=== PATIENT | male | born 1950 | race Caucasian/White ===

== ENCOUNTER → 2016-03-15 | Outpatient (CLI) | payer BC ==
--- NOTE | 2016-03-15 12:08 | US ---
EXAMINATION TYPE: US thyroid st tissue head/neck DATE OF EXAM: 03/15/2016 11:07 AM COMPARISON: In pacs CLINICAL HISTORY: Follow up thyroid nodules, history of thyroid bx. GLAND SIZE: Right Lobe: 4.0 x 2.0 x 1.9cm Overall Parenchyma: heterogenous Left Lobe: 5.1 x 2.0 x 1.6cm Overall Parenchyma: heterogeneous Isthmus Thickness: 0.6cm NODULES RIGHT: # of nodules measured on right: 2 1. Stable hyperechoic solid nodule at the mid pole with well-defined margins. This nodule is wider t atkinson tall and shows intranodular vascularity. Prior size: 0.5 x 0.6 x 0.4 cm 2. 1.0 X 0.7 x 0.9 cm hypoechoic solid nodule at the upper pole with well-defined margins. This nodu le is wider than tall and shows no intranodular vascularity. Prior size: 0.9 x 0.7 x 0.9 cm LEFT: # of nodules measured on left: 0 ISTHMUS: # of nodules measured in the isthmus: 1 1. 2.3 X 1.2 x 1.9 cm hypoechoic solid nodule at the mid pole with well-defined margins. This nodul e is wider than tall and shows intranodular vascularity. IMPRESSION: Essentially stable exam SONOGRAPHIC PATTERNS, ESTIMATED MALIGNANCY RISK AND FNA GUIDANCE FOR THYROID NODULES Sonographic Pattern: Benign Ultrasound Features: Purely Cystic Nodules (No Solid Component) Estimated Risk Of Malignancy, %: <1 FNA Size Cutoff (Largest Dimension): No Biopsy Sonographic Pattern: Very Low Suspicion Ultrasound Features: Spongiform Or Partially Cystic Nodules Without Any Of The Sonographic Features Described In Low, Inte rmediate Or High Suspicion Patterns. Estimated Risk Of Malignancy, %: <3 FNA Size Cutoff (Largest Dimension): Recommend FNA At > 2cm Or Observation Without FNA Sonographic Pattern: Low Suspicion Ultrasound Features: Isoechoic Or Hyperechoic Solid Nodule, Or Partially Cystic Nodule With Eccentric Solid Areas, Without Microcalcification, Irregular Margin Or Ete, Or Taller Than Wide Shape. Estimated Risk Of Malignancy, %: 5-10 FNA Size Cutoff (Largest Dimension): Recommend FNA At > 1.5cm Sonographic Pattern: Intermediate Suspicion Ultrasound Features: Hypoechoic Solid Nodule With Smooth Margins Without Microcalcifications, Ete, Or Taller Than Wide Sha pe. Estimated Risk Of Malignancy, %: 10-20 FNA Size Cutoff (Largest Dimension): Recommend FNA At > 1cm Sonographic Pattern: High Suspicion Ultrasound Features: Solid Hypoechoic Nodule Or Solid Hypoechoic Component Of A Partially Cystic Nodule With One Or More O f The Following Features: Irregular Margins (Infiltrative, Microlobulated), Microcalcifications, Tall er Than Wide Shape, Rim Calcifications With Small Extrusive Soft Tissue Component, Evidence Of Ete Estimated Risk Of Malignancy, %: >70-90 FNA Size Cutoff (Largest Dimension): Recommend FNA At > 1cm
== END | disposition home or self-care (01) ==
LOC: RADUSWWP 10:28
PROVIDERS: ATTEND Surgery
DX: E04.2 Nontoxic multinodular goiter (principal)
CPT/HCPCS: 76536

== ENCOUNTER → 2016-09-06 | Outpatient (CLI) | payer BC ==
--- NOTE | 2016-09-07 09:13 | XR ---
EXAMINATION TYPE: XR finger RT DATE OF EXAM: 09/06/2016 COMPARISON: NONE HISTORY: Pain TECHNIQUE: Two views are submitted. FINDINGS: The osseous structures are intact. The joint spaces are preserved and there is no acute fracture or dislocation. Soft tissue laceration and edema noted adjacent to the distal phalanx. Benign-appearing cyst within the middle phalanx second digit. IMPRESSION: 1. No definite acute fracture or dislocation if symptoms persist, follow-up study in 7 to 10 days wo uld be suggested
== END | disposition home or self-care (01) ==
LOC: RADXRYALE 16:43
PROVIDERS: ATTEND Family Medicine
DX: S61.210A Laceration without foreign body of right index finger without damage to nail, initial encounter (principal); W45.8XXA Other foreign body or object entering through skin, initial encounter

== ENCOUNTER 2016-12-16 08:52 | Emergency (ER) | payer BC ==
[2016-12-16 08:58] VITALS: BP 118/67; PULSE 63; RESP 20; TEMP 97.8
--- NOTE | 2016-12-16 09:05 | ED ---
General Adult HPI <Nasim Interiano - Last Filed: 12/16/16 09:21> - General Source: patient, RN notes reviewed Mode of arrival: ambulatory Limitations: no limitations <Julio Callahan - Last Filed: 12/16/16 10:25> - General Chief complaint: Extremity Injury, Upper Stated complaint: LEFT HAND PINKIE FINGER LAC Time Seen by Provider: 12/16/16 08:59 - History of Present Illness Initial comments: Patient 66-year-old male who presents emergency room today with chief complaint of an injury to the left pinky finger that occurred just prior to arrival. 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 He states tetanus is up-to-date. Patient admits to pain locally to the area but denies any other complaints or symptoms. Patient denies any recent fever, chills, shortness of breath, chest pain, back pain, abdominal pain, nausea or vomiting, numbness or tingling, dysuria or hematuria, constipation or diarrhea, headaches or visual changes, or any other complaints. (Julio Callahan) - Related Data Home Medications Medication Instructions Recorded Confirmed Aspirin [Adult Low Dose Aspirin EC] 81 mg PO DAILY 07/30/15 12/16/16 Gabapentin [Neurontin] 300 mg PO BID 07/30/15 12/16/16 Levothyroxine Sodium [Synthroid] 25 mcg PO DAILY 07/30/15 12/16/16 Previous Rx's Medication Instructions Recorded Cephalexin [Keflex] 500 mg PO Q12HR 10 Days 12/16/16 Hydrocodone/Acetaminophen [[place] 1 each PO Q6HR PRN #15 tab 12/16/16 5-325] Allergies Allergy/AdvReac Type Severity Reaction Status Date / Time codeine Allergy Swelling Verified 12/16/16 08:55 Penicillins Allergy Swelling Verified 12/16/16 08:55 Review of Systems ROS Other: All systems not noted in ROS Statement are negative. <Nasim Interiano - Last Filed: 12/16/16 09:21> ROS Other: All systems not noted in ROS Statement are negative. <Julio Callahan - Last Filed: 12/16/16 10:25> ROS Statement: Those systems with pertinent positive or pertinent negative responses have been documented in the HPI. Past Medical History Past Medical History: Thyroid Disorder Additional Past Medical History / Comment(s): thyroid nodule History of Any Multi-Drug Resistant Organisms: None Reported Additional Past Surgical History / Comment(s): carpal tunnel 2015 Past Anesthesia/Blood Transfusion Reactions: No Reported Reaction Past Psychological History: No Psychological Hx Reported Smoking Status: Never smoker Past Alcohol Use History: None Reported Past Drug Use History: None Reported - Past Family History Mother Family Medical History: Cancer Additional Family Medical History / Comment(s): cervial <Julio Callahan - Last Filed: 12/16/16 10:25> General Exam <Nasim Interiano - Last Filed: 12/16/16 09:21> Limitations: no limitations <Julio Callahan - Last Filed: 12/16/16 10:25> - General Exam Comments Initial Comments: General: The patient is awake and alert, in no distress, and does not appear acutely ill. Neck: The neck is supple, there is no tenderness or JVD. Cardiovascular: There is a regular rate and rhythm. No murmur, rub or gallop is appreciated. Respiratory: Lungs are clear to auscultation, respirations are non-labored, breath sounds are equal. No wheezes, stridor, rales, or rhonchi. Musculoskeletal: Patient does have a laceration and partial amputation running on a angle from the DIP to the distal tip of the left pinky finger. Patient's sensations are intact. Pulses equal bilaterally 2+. Neurological: A&O x 3. CN II-XII intact, There are no obvious motor or sensory deficits. Coordination appears grossly intact. Speech is normal. Skin: Skin is warm and dry and no rashes or lesions are noted. Psychiatric: Normal mood and affect. (Julio Callahan) Procedures <Nasim Interiano - Last Filed: 12/16/16 09:21> <Julio Callahan - Last Filed: 12/16/16 10:25> - Procedures Initial comment: The skin was anesthetized with 1% lidocaine at the head of the metacarpal. The laceration was then cleansed with and irrigated with approximately 1 L normal saline under pressure. The wound was inspected, and there was no evidence of injury to deep structures. No foreign body was noted in the wound. A total of 7 skin sutures were placed utilizing 4-0 nylon. (Julio Callahan) Medical Decision Making <Nasim Interiano - Last Filed: 12/16/16 09:21> <Julio Callahan - Last Filed: 12/16/16 10:25> - Medical Decision Making Patient reevaluated by myself, Dr. Interiano. Patient has approximately 80-90% amputation of lateral portion left small finger distal to the DIP. There is a small amount of skin attachment. X-ray reviewed. Case was discussed in detail with Dr. Ervin who does agree with plan and will follow-up Sunday with Dr. Ever Ram. He states area should be cleaned and approximated and antibiotic should be provided. Patient was updated regarding this and high likelihood of area not revascularize seen and likely needing removal of this area and possibly even further amputation. Patient was also advised of concern for infection. (Nasim Interiano) Disposition <Nasim Interiano - Last Filed: 12/16/16 09:21> Time of Disposition: 10:24 <Julio Callahan - Last Filed: 12/16/16 10:25> Clinical Impression: Open fracture of finger of left hand Narrative: Partial finger amputation of the left fifth digit. (Julio Callahan) Disposition: HOME SELF-CARE Condition: Good Instructions: Finger Laceration (ED) Additional Instructions: Please follow-up with the orthopedic doctor Sunday morning. Please use antibiotic as prescribed and pain medication as needed. Please return to emergency room if symptoms increase worsen or for any other concerns. Prescriptions: Cephalexin [Keflex] 500 mg PO Q12HR 10 Days Hydrocodone/Acetaminophen [[place] 5-325] 1 each PO Q6HR PRN #15 tab PRN Reason: Pain Referrals: Joseph Landin DO [Primary Care Provider] - 1-2 days Ever Cloud DO [Doctor of Osteopathic Medicine] - 1-2 days
[2016-12-16] MEDS ORDERED: ceFAZolin 1,000 MG VIAL IM STA (09:16)
[2016-12-16] MEDS ORDERED: DIPH,PERTUS(ACELL)TETVAC-LF 0.5 ML VIAL IM ONE (09:23)
--- NOTE | 2016-12-16 09:41 | XR ---
EXAMINATION TYPE: XR finger LT , 3 VIEWS DATE OF EXAM ORDERED: 12/16/2016 HISTORY: Pain. COMPARISON: None. FINDINGS: There is a compound, comminuted but minimally displaced fracture of the tuft of the left f ifth digit. There is a significant soft tissue defect. There is a small radiopaque sliver in the distal phalanx of the ring finger. IMPRESSION: 1. MILDLY DISPLACED, COMPOUND, COMMINUTED FRACTURE OF THE TUFT OF THE LEFT SMALL DIGIT. 2. SMALL RADIOPAQUE FOREIGN BODY IN THE DISTAL PHALANX OF THE LEFT RING FINGER. CODE B: INITIAL ASSESSMENT FOR OPEN FRACTURE TYPE ONE OR 2
--- NOTE | 2016-12-29 04:26 | CDI ---
Documentation Clarification OP D ear Julio HAAS PA-C, P, Please do addendum to ED report that describes length and depth of the repair. Thank you, Naz Hunter Cyber Crime Investigator If you have any question, Please contact sales planning manager at [phone] [facility]
== END 2016-12-16 11:05 | disposition home or self-care (01) ==
LOC: EC 08:52
DX: S62.637B Displaced fracture of distal phalanx of left little finger, initial encounter for open fracture (principal); E07.9 Disorder of thyroid, unspecified; Z79.82 Long term (current) use of aspirin; Z79.899 Other long term (current) drug therapy; Z88.0 Allergy status to penicillin; Z88.5 Allergy status to narcotic agent; Y92.79 Other farm location as the place of occurrence of the external cause; W20.8XXA Other cause of strike by thrown, projected or falling object, initial encounter
CPT/HCPCS: 99283; 12001; 96372; 73140; J0690

== ENCOUNTER → 2018-04-05 | Outpatient (CLI) | payer MEDICARE, BC ==
--- NOTE | 2018-04-05 12:00 | XR ---
EXAMINATION TYPE: XR chest 2V DATE OF EXAM: 04/05/2018 COMPARISON: NONE HISTORY: Preop TECHNIQUE: Frontal and lateral views of the chest are obtained. FINDINGS: There is no focal air space opacity, pleural effusion, or pneumothorax seen. The cardiac silhouette size is within normal limits. The osseous structures are intact. Some minimal lingular s tranding likely represents scarring, atelectasis. There is eventration of right hemidiaphragm. IMPRESSION: No acute cardiopulmonary process.
== END ==
LOC: RADXRYALE 11:08
PROVIDERS: ATTEND Physician Assistant Medical
DX: Z01.811 Encounter for preprocedural respiratory examination (principal)
CPT/HCPCS: 71046

== ENCOUNTER → 2018-04-08 | Outpatient (CLI) | payer MEDICARE, BC ==
[2018-04-08 11:59] LABS: Basophils % (A) 1 %; Eosinophils # (A) 0.1 k/uL (0-0.7); Eosinophils % (A) 2 %; HCT 44.2 % (39.0-53.0); HGB 14.9 gm/dL (13.0-17.5); Lymphocytes % (A) 33 %; MCH 30.2 pg (25.0-35.0); MCHC 33.7 g/dL (31.0-37.0); MCV 89.5 fL (80.0-100.0); Mean Platelet Volume 6.2; Monocytes # (A) 0.5 k/uL (0-1.0); Monocytes % (A) 8 %; Neutrophils # (A) 3.4 k/uL (1.3-7.7); Neutrophils % (A) 54 %; Platelet Count 266 k/uL (150-450); RBC 4.94 m/uL (4.30-5.90); RDW 12.6 % (11.5-15.5); WBC 6.2 k/uL (3.8-10.6)
[2018-04-08 12:12] LABS: INR 0.9 (<1.2); Partial Thromboplastin Time 24.6 sec (22.0-30.0); Prothrombin Time 10.1 sec (9.0-12.0)
[2018-04-08 12:28] LABS: Anion Gap 6 mmol/L; Blood Urea Nitrogen 15 mg/dL (9-20); Calcium 9.3 mg/dL (8.4-10.2); Carbon Dioxide 29 mmol/L (22-30); Chloride 107 mmol/L (98-107); Glucose 89 mg/dL (74-99); Potassium 4.6 mmol/L (3.5-5.1); Sodium 142 mmol/L (137-145)
== END | disposition home or self-care (01) ==
LOC: LABPAT 10:28
PROVIDERS: ATTEND Orthopaedic Surgery Orthopaedic Surgery of the Spine
DX: Z01.812 Encounter for preprocedural laboratory examination (principal); Z51.81 Encounter for therapeutic drug level monitoring; Z79.01 Long term (current) use of anticoagulants; M54.10 Radiculopathy, site unspecified
CPT/HCPCS: 36415; 80048; 85025; 85610; 85730; 86850; 86900; 86901

== ENCOUNTER 2018-04-17 05:39 | Inpatient (IN) | payer MEDICARE, BC ==
[~2018-04-17 05:39] MED LIST: BACITRACIN 50,000 UNIT, POLYMYXIN B 500,000 UNIT in SODIUM CHLORIDE 0.9% IRRIGATIO 1,00... IRRIGATION ONE; CLINDAMYCIN 900 MG in DEXTROSE 5% IN WATER 50 ML IVPB ONE; ceFAZolin IN SWFI 2 GM/20 ML SYRINGE IVP ONE
[2018-04-17] MEDS ORDERED: LIDOCAINE 1% 20 ML VIAL (10MG/ML) FOR IV START INTRADERMA PRN (06:22)
[2018-04-17] MEDS ORDERED: DEXAMETHASONE SOD PHOSPHATE 10 MG/ML 1 ML VIAL IV ONE (06:22)
[2018-04-17] MEDS ORDERED: LACTATED RINGERS 1,000 ML IV SCH (06:22)
[2018-04-17] MEDS ORDERED: SCOPOLAMINE 1.5MG/72HR PATCH TRANSDERM ONE (06:22)
[2018-04-17] MEDS ORDERED: MIDAZOLAM (PF) 2 MG/2 ML VIAL IV PRN (06:22)
[2018-04-17] MEDS ORDERED: ONDANSETRON 4 MG/2 ML VIAL IVP ONE (06:22)
[2018-04-17 06:44] LABS: Glucose,Whole Blood 92 mg/dL (75-99)
[2018-04-17] MEDS ORDERED: fentaNYL (PF) 50 MCG/ML 2 ML AMP ONE (07:24)
[2018-04-17] MEDS ORDERED: SUCCINYLCHOLINE CHLORIDE 100 MG/5 ML SYR IV ONE (07:24)
[2018-04-17] MEDS ORDERED: ePHEDrine SULFATE/0.9% NACL/PF 50 MG/5 ML SYRINGE IV ONE (07:24)
[2018-04-17] MEDS ORDERED: MIDAZOLAM 2 MG/2 ML VIAL ONE (07:24)
[2018-04-17] MEDS ORDERED: LIDOCAINE 1% INJ 10MG/ML (20 ML MDV) ONE (07:24)
[2018-04-17] MEDS ORDERED: DEXAMETHASONE SOD PHOS (MDV) 100 MG/10 ML VIAL ONE (07:24)
[2018-04-17] MEDS ORDERED: PROPOFOL 10 MG/ML 20 ML VIAL IV ONE (07:24)
[2018-04-17] MEDS ORDERED: THROMBIN (BOVINE) 5,000 UNIT VIAL MISCELLANE ONE (07:59)
[2018-04-17] MEDS ORDERED: BUPIVACAINE-EPI 0.5%-1:200,000 10 ML VIAL SQ ONE ×2 (07:59)
[2018-04-17] MEDS ORDERED: GELATIN SPONGE,ABSORB (LARGE) 1 EACH SPONGE MISCELLANE ONE (07:59)
[2018-04-17] MEDS ORDERED: LACTATED RINGERS 1,000 ML IV ONE (08:35)
--- NOTE | 2018-04-17 09:49 | XR ---
Cervical spine HISTORY: Needle placement Single lateral view of the cervical spine There is a needle present at the intervertebral disc level C5-6. Endotracheal tube noted incidentally . Bone mineralization reduced. IMPRESSION: Orthopedic localization
[2018-04-17] MEDS ORDERED: HYDROmorphone 1 MG/ML 1 ML SYRINGE IVP PRN (09:50)
[2018-04-17] MEDS ORDERED: HYDROmorphone 0.5 MG/0.5 ML SYRINGE IVP PRN (09:50)
[2018-04-17] MEDS ORDERED: BENZOCAINE/MENTHOL LOZENG 1 EACH LOZENGE MUCOUS MEM PRN (09:50)
[2018-04-17] MEDS ORDERED: HYDROcodone/APAP 5-325MG 1 EACH TAB PO PRN ×2 (09:51→09:52)
[2018-04-17] MEDS ORDERED: ONDANSETRON 4 MG/2 ML VIAL IVP PRN (09:51)
[2018-04-17] MEDS ORDERED: ACETAMINOPHEN TAB 325 MG TAB PO PRN (09:51)
--- NOTE | 2018-04-17 09:58 | P.OP ---
Date of Procedure: 04/17/18 Preoperative Diagnosis: Herniated nucleus pulposis C5 6 C6 7, cervical stenosis, degenerative disc disease, DrPancho extremity radiculopathy, neck pain Postoperative Diagnosis: Same Anesthesia: GETA Pathology: none sent Condition: stable Disposition: PACU Description of Procedure: BRIEF OPERATIVE NOTE Preoperative Diagnosis:Herniated nucleus pulposis C5 6 C6 7, cervical stenosis, degenerative disc disease, DrPancho extremity radiculopathy, neck pain Postoperative Diagnosis: Same Procedure: Anterior cervical decompression with discectomy and fusion C5 6 and C6 7 Placement of interbody graft C5 6 and C6 7 Application of anterior cervical plate C5 6 and 7 Surgeon: Dr. Matamoros High School Coach: Yariel Oro is present throughout the entire the case persistence during positioning, dissection, exposure, visualization, and all crucial elements of the case as well as closure. Anesthesia: General anesthesia Estimated blood loss: Approximately 50 mL Complications: None apparent Components implanted: K2M Magnolia anterior cervical plate system with screws and Vikos interbody allograft bone graft with 1 mL of DBX bone putty to supplemental bone graft Disposition: To recovery room in good stable condition. OPERATIVE INDICATIONS The patient has had long-standing issues in their neck and upper extremities. His symptoms in his left upper extremity were severe for him and he was having significant pain despite conservative treatment. He had some component of carpal tunnel syndrome and underwent carpal tunnel surgery without significant relief into his upper arm and from his neck. The patient has been through conservative treatment. He was found have disc herniation at C6 7 and at C5 6 which correlated with his neck and upper extremity symptoms. We discussed various treatment options including surgery, with anterior cervical discectomy and fusion, and the patient wishes to proceed with surgery We discussed the risk , patient's alternatives and benefits of surgery including but not limited to, risk of bleeding risk of infection, risk of need for further surgery, risk of decreased, loss of motion, muscle function, malunion nonunion, hardware failure , nerve damage, paralysis, heart attack, and . OPERATIVE SUMMARY After discussing all the risks, patient alternatives and benefits at length, the patient elected to proceed with surgical intervention, signed informed consent, and presented for their procedure. The patient was seen and examined in the preoperative holding area and the surgical site was marked. The patient was given antibiotics and brought to the operating room. The patient was positioned on the operating room table in a supine position being careful to pad any bony prominences and pressure points. The patient was sedated and intubated by anesthesia in standard fashion. Once the airway and C- spine were stabilized the patient's arms were padded and tucked at her side, with her shoulders gently taped. The head was placed in a donut pad with the neck in good neutral alignment and position. We were careful to maintain the patient's cervical spine and good neutral alignment and position throughout. The patient was prepped and draped in a normal standard fashion. An appropriate timeout and keystone protocol performed. We were able to proceed with the surgery. The local wound area was infiltrated with local anesthetic. An incision was made transversely approximately 2-1/2 cm over the appropriate levels at C6. Dissection was taken down subcutaneously to the level of the platysma which was split in line with its fibers. Dissection was taken with a carotid approach, with the trachea and esophagus medial and the carotid sheath laterally. We dissected down to the anterior surface of the vertebral bodies of C5 6 and 7. Intraoperative x-ray was taken which showed a marker at the appropriate level at C5 6. With the appropriate level positively confirmed, we were able to proceed with discectomy at the appropriate levels, starting at C6 7 and then moving the C5 6. All of the operative levels were exposed appropriately. The patient had all their twitches back, and there was no evidence of recurrent laryngeal issue. The wound was copiously irrigated and suctioned dry as had been done periodically throughout the case. At the appropriate level/levels, starting at C6 7 and then moving the C5 6 I established an annulotomy with an 11 blade scalpel. A discectomy was performed with a combination of pituitary rongeurs, curettes, a high-speed bur, and Kerrison rongeurs. The posterior longitudinal ligament was taken down as were any posterior osteophytes. No was made of disc herniation at C5 6 and worse at C6 7 left. This was remedied with the decompression and discectomy. This gave good central and bilateral foraminal decompression. There is no evidence of any dural tear or leak. The endplates were prepared with a high-speed bur. With the endplates in good parallel position, I was able to size for the appropriate size interbody graft. The wound was irrigated and suctioned dry the graft was prepared and malleted into position. It had good alignment and position with the anterior surface flush with the anterior surface of the vertebral bodies. This was done similarly the appropriate levels. With the grafts intact, I was able to measure and contour and appropriate sized plate. The plate was positioned at the midline over the appropriate levels at C5 6 and 7. Screw holes were established with a hand drill and drill guide. Screws were placed in good alignment and position with excellent bony purchase. They were seated under the locking device. The construct was checked and found to be stable. Intraoperative x-ray was taken which showed good alignment and position of the implants at the appropriate levels. There was no evidence of any dural tear or leak. Good hemostasis was maintained. The wound was copiously irrigated and suctioned dry as had been done periodically throughout the case. The platysma was closed with absorbable suture. The subcutaneous tissue was closed. The subcuticular tissue was closed with absorbable suture. The wound was cleaned and dried and dressed appropriately. A soft cervical collar was placed appropriately. The patient was woken up by anesthesia, extubated, transferred back gently to their hospital bed and brought to the recovery room in good stable condition. The patient will be admitted to the hospital for appropriate postoperative care , medical management and monitoring. We will continue to follow them closely about the postoperative course.
[2018-04-17] MEDS ORDERED: SODIUM CHLORIDE 0.9% 1,000 ML IV SCH (10:00)
[2018-04-17] MEDS: HYDROmorphone 0.5 MG/0.5 ML SYRINGE IVP PRN ×4 (10:12→10:47)
[2018-04-17] MEDS ORDERED: diphenhydrAMINE 50 MG/ML 1 ML VIAL IVP ONE (10:21)
[2018-04-17 11:40] VITALS: RESP 17; BMI 31.6
--- NOTE | 2018-04-17 11:45 | XR ---
Cervical spine HISTORY: Anterior cervical fusion and discectomy Single lateral view of the cervical spine. The patient shows anterior cervical fusion and discectomy at what is believed to be C5-C7 with interv ertebral spacing blocks, the lower aspect of the fusion is not seen due to superimposed soft tissue. Endotracheal tube is in place. Bone mineralization is reduced. There are overlying artifacts. Alignme nt thought to be anatomic. IMPRESSION: Orthopedic follow-up
[2018-04-17 12:26] VITALS: TEMP 97.5
[2018-04-17 13:25] VITALS: BP 149/89; PULSE 101
[2018-04-17] MEDS ORDERED: CLINDAMYCIN 900 MG in DEXTROSE 5% IN WATER 50 ML IVPB SCH ×2 (16:00)
[2018-04-17] MEDS ORDERED: GABAPENTIN 400 MG CAP PO SCH (16:00)
--- NOTE | 2018-04-17 17:34 | P.DS ---
Providers Date of admission: 04/17/18 05:39 Attending physician: Johnna Matamoros Primary care physician: Audelia Arandancjose [facility] Course: pt admitted post op from cervical stenosis with herniated disc and upper extremity radiculopathy. underwent ACDF C5/6 C6/7 and is improving well postoperatively Physical exam neck soft and supple scant drainage neuro unchanged from proior to surgery a/p POD #0 s/p ACDF C5/6 C6/7 for herniated disc with stenosis and UE radiculopathy improving well site is clear, tolerating oral intake and pain meds, antibiotics completed ambulatory and voiding freely will discharge to home with appropriate instuctions and follow up Patient Condition at Discharge: Good Plan - Discharge Summary Discharge Rx Participant: Yes New Discharge Prescriptions: New HYDROcodone/APAP 5-325MG [[place] 5] 1 each PO Q4HR PRN #18 tab PRN Reason: Pain No Action Hydrocodone/Acetaminophen [[place] 5-325] 1 each PO Q6HR PRN #15 tab PRN Reason: Pain Pravastatin Sodium [Pravachol] 20 mg PO DAILY Gabapentin [Neurontin] 400 mg PO TID Levothyroxine Sodium [Synthroid] 88 mcg PO DAILY Discharge Medication List Hydrocodone/Acetaminophen [[place] 5-325] 1 each PO Q6HR PRN #15 tab 12/16/16 [Rx] Pravastatin Sodium [Pravachol] 20 mg PO DAILY 04/11/18 [History] Gabapentin [Neurontin] 400 mg PO TID 04/17/18 [History] HYDROcodone/APAP 5-325MG [[place] 5] 1 each PO Q4HR PRN #18 tab 04/17/18 [Rx] Levothyroxine Sodium [Synthroid] 88 mcg PO DAILY 04/17/18 [History] Follow up Appointment(s)/Referral(s): Pamela Valdez SN [Student Nurse] - 1 Week (error- do not follow with Nikolay Valdez) Johnna Matamoros DO [Doctor of Osteopathic Medicine] - 2 Weeks Activity/Diet/Wound Care/Special Instructions: keep site clean may shower with waterproof tegaderm intact on Sunday, may shower with area uncovered, but leave steri-strips intact and allow them to fray off on their own do not soak in a tub avoid heavy or rigorous activity no overhead work no lifting greater than 15 lbs no repetitive bending, twisting or lifting Discharge Disposition: HOME SELF-CARE
[2018-04-18] MEDS ORDERED: LEVOTHYROXINE 88 MCG TAB PO SCH (06:30)
[2018-04-18] MEDS ORDERED: PRAVASTATIN SODIUM 20 MG TAB PO SCH (09:00)
[2018-04-18] MEDS ORDERED: SENNOSIDES-DOCUSATE SODIUM 1 EACH TAB PO SCH ×2 (09:00)
== END 2018-04-17 19:56 | disposition home or self-care (01) | DRG 473 ==
LOC: 2ORMAIN 05:39 → 4SSUR 10:38
PROVIDERS: ADMIT Orthopaedic Surgery Orthopaedic Surgery of the Spine; ATTEND Orthopaedic Surgery Orthopaedic Surgery of the Spine
PROC: 0RB30ZZ Excision of Cervical Vertebral Disc, Open Approach (ICD-10-PCS; 2018-04-17)
PROC: 0RG20K0 Fusion of 2 or more Cervical Vertebral Joints with Nonautologous Tissue Substitute, Anterior Approach, Anterior Column, Open Approach (ICD-10-PCS; principal; 2018-04-17 07:30)
DX: M50.122 Cervical disc disorder at C5-C6 level with radiculopathy (principal); M48.02 Spinal stenosis, cervical region; M47.812 Spondylosis without myelopathy or radiculopathy, cervical region; E78.2 Mixed hyperlipidemia; E03.9 Hypothyroidism, unspecified; I45.6 Pre-excitation syndrome; E66.9 Obesity, unspecified; Z68.31 Body mass index [BMI] 31.0-31.9, adult; Z79.890 Hormone replacement therapy; Z79.891 Long term (current) use of opiate analgesic; Z79.899 Other long term (current) drug therapy; Z88.5 Allergy status to narcotic agent; Z88.0 Allergy status to penicillin
CPT/HCPCS: 72020; 86850; 86900; 86901; 94760

== ENCOUNTER → 2019-02-03 | Outpatient (CLI) | payer MEDICARE, BC ==
--- NOTE | 2019-02-03 10:22 | XR ---
EXAMINATION TYPE: XR abdomen 2V DATE OF EXAM: 02/03/2019 COMPARISON: EXAMINATION TYPE: XR abdomen 2V DATE OF EXAM: 02/03/2019 COMPARISON: NONE HISTORY: Pain TECHNIQUE: One view abdominal series FINDINGS: The osseous structures are intact. The bowel gas pattern is nonspecific. Calcifications in the pelvi s are nonspecific but likely vascular. Hypertrophic change of the acetabulum correlate for femoral ac etabular impingement. Curvature of the spine noted. IMPRESSION: 1. Nonspecific abdomen. HISTORY: TECHNIQUE: One view abdominal series FINDINGS: The osseous structures are intact. The bowel gas pattern is nonspecific. Lung bases are clear. IMPRESSION: 1. Nonspecific abdomen.
== END | disposition home or self-care (01) ==
LOC: RADXRYALE 09:16
PROVIDERS: ATTEND Family Medicine
DX: R10.813 Right lower quadrant abdominal tenderness (principal); R11.2 Nausea with vomiting, unspecified
CPT/HCPCS: 74019

== ENCOUNTER → 2019-02-05 | Outpatient (CLI) | payer MEDICARE, BC ==
[2019-02-05 17:06] LABS: Basophils % (A) 0 %; Eosinophils # (A) 0.1 k/uL (0-0.7); Eosinophils % (A) 1 %; HCT 48.8 % (39.0-53.0); HGB 16.2 gm/dL (13.0-17.5); Lymphocytes # (A) 1.5 k/uL (1.0-4.8); Lymphocytes % (A) 15 %; MCH 29.8 pg (25.0-35.0); MCHC 33.3 g/dL (31.0-37.0); MCV 89.4 fL (80.0-100.0); Mean Platelet Volume 5.9; Monocytes # (A) 0.8 k/uL (0-1.0); Monocytes % (A) 8 %; Neutrophils # (A) 7.3 k/uL (1.3-7.7); Neutrophils % (A) 74 %; Platelet Count 313 k/uL (150-450); RBC 5.46 m/uL (4.30-5.90); RDW 12.2 % (11.5-15.5); WBC 9.9 k/uL (3.8-10.6)
[2019-02-05 18:07] LABS: Albumin 4.3 g/dL (3.5-5.0); Calcium 9.4 mg/dL (8.4-10.2); Total Bilirubin 1.8 mg/dL (0.2-1.3); Total Protein 7.4 g/dL (6.3-8.2)
--- NOTE | 2019-02-05 19:02 | CT ---
EXAMINATION TYPE: CT abdomen pelvis wo con DATE OF EXAM: 02/05/2019 HISTORY: abdominal pain and nausea CT DLP: 1105.4 mGycm. Automated Exposure Control for Dose Reduction was Utilized. TECHNIQUE: CT scan of the abdomen and pelvis is performed with oral but without IV contrast. COMPARISON: NONE FINDINGS: Within the limitations of a non-contrast study, the following observations are made. LUNG BASES: No significant abnormality is appreciated. LIVER/GB: No significant abnormality is appreciated. PANCREAS: No significant abnormality is seen. SPLEEN: No significant abnormality is seen. ADRENALS: No significant abnormality is seen. KIDNEYS: I suspect roughly 2.2 cm simple appearing partially exophytic cyst upper pole level laterall y left kidney axial image 35. Some cortical thinning and mild perinephric stranding bilaterally presu med product of chronic medical renal disease. There is 8 mm calculus right kidney upper pole level co dayana image 70. There is an obstructing 8 mm calculus mid right ureter coronal image 62 causing moder ate right-sided hydronephrosis. No intraluminal calculi and poorly distended bladder. BOWEL: Oral contrast reaches level of rectum. No suspicious small or large bowel dilatation. Some sca ttered air-fluid levels throughout the mid to distal colon. This is nonspecific. GENITAL ORGANS: Mildly enlarged prostate gland bulging on bladder base. Adjacent pelvic phleboliths. LYMPH NODES: No greater than 1cm abdominal or pelvic lymph nodes are appreciated. OSSEOUS STRUCTURES: Bilateral pars defect L5 level with spondylolisthesis and advanced disc space kristyn rowing with endplate sclerosis and vacuum disc phenomenon L5-S1 level. OTHER: Mild calcified plaque of the aorta extends into branch vessels. IMPRESSION: Obstructing 8 mm right mid ureter calculus is causing moderate right-sided hydronephrosis .
== END | disposition home or self-care (01) ==
LOC: RADCTMAIN 16:41
PROVIDERS: ATTEND Physician Assistant
DX: N13.2 Hydronephrosis with renal and ureteral calculous obstruction (principal); R10.31 Right lower quadrant pain; R11.0 Nausea
CPT/HCPCS: 36415; 74176; 80053; 85025

== ENCOUNTER 2019-02-06 10:45 | Observation (INO) | payer MEDICARE, BC ==
[2019-02-06] MEDS ORDERED: KETOROLAC 30 MG/ML 1 ML VIAL IVP STA (11:25)
[2019-02-06] MEDS ORDERED: SODIUM CHLORIDE 0.9% 1,000 ML IV STA (11:25)
[2019-02-06] MEDS ORDERED: MORPHINE SULFATE 4 MG/ML SYRINGE IV STA (11:25)
[2019-02-06] MEDS ORDERED: ONDANSETRON 4 MG/2 ML VIAL IVP STA (11:25)
--- NOTE | 2019-02-06 11:39 | ED ---
Abdominal Pain HPI - General Source: patient, RN notes reviewed, old records reviewed Mode of arrival: ambulatory Limitations: no limitations <Trina Carrasco - Last Filed: 02/06/19 13:36> <Ashlie Buchanan - Last Filed: 02/10/19 22:49> - General Chief Complaint: Abdominal Pain Stated Complaint: Kidney Stone Time Seen by Provider: 02/06/19 11:16 - History of Present Illness Initial Comments: Pravin is a 68-year-old male, who presents emergency department today for evaluation for right-sided abdominal pain. He reports symptoms of it starting since Sunday night. He isn't having this pain for approximately 5 days. He had an outpatient CAT scan and blood work completed by primary care doctor yesterday. He determined that there is an 8 mm ureteral stone. Patient reports that he's had no fevers or chills. Denies any dysuria. (Trina Carrasco) - Related Data Home Medications Medication Instructions Recorded Confirmed Pravastatin Sodium [Pravachol] 20 mg PO HS 04/11/18 02/06/19 Gabapentin [Neurontin] 400 mg PO BID 04/17/18 02/06/19 Levothyroxine Sodium [Synthroid] 100 mcg PO DAILY 02/06/19 02/06/19 Multivitamins, Thera [Multivitamin 2 tab PO DAILY 02/06/19 02/06/19 (formulary)] Naproxen Sodium [Aleve] 220 mg PO DAILY PRN 02/06/19 02/06/19 Ondansetron [Zofran] 4 mg PO TID PRN 02/06/19 02/06/19 Previous Rx's Medication Instructions Recorded Ciprofloxacin HCl [Cipro] 250 mg PO Q12HR #6 tablet 02/07/19 Ibuprofen [Motrin] 600 mg PO Q8HR PRN #30 tab 02/07/19 Tamsulosin [Flomax] 0.4 mg PO DAILY #30 cap 02/07/19 Allergies Allergy/AdvReac Type Severity Reaction Status Date / Time codeine Allergy Swelling Verified 02/06/19 13:22 Penicillins Allergy Swelling Verified 02/06/19 13:22 phthalates Allergy sneezing Uncoded 02/06/19 10:57 and runny nose Review of Systems ROS Other: All systems not noted in ROS Statement are negative. <Trina Carrasco - Last Filed: 02/06/19 13:36> ROS Other: All systems not noted in ROS Statement are negative. <Ashlie Buchanan - Last Filed: 02/10/19 22:49> ROS Statement: Those systems with pertinent positive or pertinent negative responses have been documented in the HPI. Past Medical History Past Medical History: Hyperlipidemia, Thyroid Disorder Additional Past Medical History / Comment(s): thyroid nodule History of Any Multi-Drug Resistant Organisms: None Reported Past Surgical History: Appendectomy Additional Past Surgical History / Comment(s): carpal tunnel 2015, NECK SURGERY Past Anesthesia/Blood Transfusion Reactions: No Reported Reaction Additional Past Anesthesia/Blood Transfusion Reaction / Comment(s): no hx blood transfusion Past Psychological History: No Psychological Hx Reported Smoking Status: Never smoker Past Alcohol Use History: None Reported Past Drug Use History: None Reported - Past Family History Mother Family Medical History: Cancer Additional Family Medical History / Comment(s): cervial <LunaTrina - Last Filed: 02/06/19 13:36> General Exam Limitations: no limitations <IvelisseniruTrina - Last Filed: 02/06/19 13:36> Course Vital Signs 02/06/19 02/06/19 02/06/19 10:54 11:55 12:26 Temperature 98 F Pulse Rate 70 61 59 L Respiratory 16 18 18 Rate Blood Pressure 108/69 135/84 122/80 O2 Sat by Pulse 95 96 95 Oximetry 02/06/19 02/06/19 15:46 17:38 Temperature 98 F Pulse Rate 77 77 Respiratory 18 18 Rate Blood Pressure 123/71 123/71 O2 Sat by Pulse 95 95 Oximetry Medical Decision Making - Lab Data Result diagrams: 02/06/19 11:50 02/06/19 11:50 - Radiology Data Radiology results: report reviewed <IvelisseandressaannabelTrina - Last Filed: 02/06/19 13:36> - Lab Data Result diagrams: 02/06/19 11:50 02/06/19 11:50 <Ashlie Buchanan - Last Filed: 02/10/19 22:49> - Medical Decision Making This patient's a 68 rolled male with 5 days of right-sided abdominal pain. Had outpatient CAT scan determining an 8 mm distal ureteral stone. Patient does have a decline his kidney function. Currently is and 1.26. Patient's case discussed with Dr. Wade discussed this with Dr. John perry. Patient will be admitted nothing by mouth after midnight. Was given O Max. Urine culture be completed. Her one dose of IV pain medication he is improved in symptoms. (Trina Carrasco) I was available for consultation in the emergency department. The history and physical exam were done by the midlevel provider. I was consulted for this patients care. I reviewed the case with the midlevel provider and based on their presentation of the patient, I agree with the assessment, medical decision making and plan of care as documented. I evaluated the patient myself and discussed the case with Dr. Mcclellan who accepted admission for the patient. Chart was dictated using [employer] dictation software. Attempts were made to correct any dictation errors however some typographical errors may persist. (Ashlie Buchanan) - Lab Data Lab Results 02/06/19 02/06/19 02/06/19 Range/Units 11:50 11:50 11:50 WBC 8.2 (3.8-10.6) k/uL RBC 5.22 (4.30-5.90) m/uL Hgb 16.0 (13.0-17.5) gm/dL Hct 46.2 (39.0-53.0) % MCV 88.5 (80.0-100.0) fL MCH 30.7 (25.0-35.0) pg MCHC 34.7 (31.0-37.0) g/dL RDW 12.2 (11.5-15.5) % Plt Count 291 (150-450) k/uL Neutrophils % 65 % Lymphocytes % 19 % Monocytes % 11 % Eosinophils % 3 % Basophils % 0 % Neutrophils # 5.3 (1.3-7.7) k/uL Lymphocytes # 1.6 (1.0-4.8) k/uL Monocytes # 0.9 (0-1.0) k/uL Eosinophils # 0.2 (0-0.7) k/uL Basophils # 0.0 (0-0.2) k/uL PT 10.7 (9.0-12.0) sec INR 1.0 (<1.2) APTT 24.5 (22.0-30.0) sec Sodium 139 (137-145) mmol/L Potassium 4.4 (3.5-5.1) mmol/L Chloride 100 (98-107) mmol/L Carbon Dioxide 27 (22-30) mmol/L Anion Gap 12 mmol/L BUN 26 H (9-20) mg/dL Creatinine 1.62 H (0.66-1.25) mg/dL Est GFR (CKD-EPI)AfAm 50 (>60 ml/min/1.73 sqM) Est GFR (CKD-EPI)NonAf 44 (>60 ml/min/1.73 sqM) Glucose 81 (74-99) mg/dL Calcium 9.1 (8.4-10.2) mg/dL Total Bilirubin 1.9 H (0.2-1.3) mg/dL AST 40 (17-59) U/L ALT 47 (21-72) U/L Alkaline Phosphatase 80 (38-126) U/L Total Protein 7.3 (6.3-8.2) g/dL Albumin 4.2 (3.5-5.0) g/dL Amylase 72 (30-110) U/L Lipase 279 (23-300) U/L Urine Color Urine Appearance (Clear) Urine pH (5.0-8.0) Ur Specific [place] (1.001-1.035) Urine Protein (Negative) Urine Glucose (UA) (Negative) Urine Ketones (Negative) Urine Blood (Negative) Urine Nitrite (Negative) Urine Bilirubin (Negative) Urine Urobilinogen (<2.0) mg/dL Ur Leukocyte Esterase (Negative) 02/06/19 Range/Units 11:50 WBC (3.8-10.6) k/uL RBC (4.30-5.90) m/uL Hgb (13.0-17.5) gm/dL Hct (39.0-53.0) % MCV (80.0-100.0) fL MCH (25.0-35.0) pg MCHC (31.0-37.0) g/dL RDW (11.5-15.5) % Plt Count (150-450) k/uL Neutrophils % % Lymphocytes % % Monocytes % % Eosinophils % % Basophils % % Neutrophils # (1.3-7.7) k/uL Lymphocytes # (1.0-4.8) k/uL Monocytes # (0-1.0) k/uL Eosinophils # (0-0.7) k/uL Basophils # (0-0.2) k/uL PT (9.0-12.0) sec INR (<1.2) APTT (22.0-30.0) sec Sodium (137-145) mmol/L Potassium (3.5-5.1) mmol/L Chloride (98-107) mmol/L Carbon Dioxide (22-30) mmol/L Anion Gap mmol/L BUN (9-20) mg/dL Creatinine (0.66-1.25) mg/dL Est GFR (CKD-EPI)AfAm (>60 ml/min/1.73 sqM) Est GFR (CKD-EPI)NonAf (>60 ml/min/1.73 sqM) Glucose (74-99) mg/dL Calcium (8.4-10.2) mg/dL Total Bilirubin (0.2-1.3) mg/dL AST (17-59) U/L ALT (21-72) U/L Alkaline Phosphatase (38-126) U/L Total Protein (6.3-8.2) g/dL Albumin (3.5-5.0) g/dL Amylase (30-110) U/L Lipase (23-300) U/L Urine Color Yellow Urine Appearance Clear (Clear) Urine pH 6.0 (5.0-8.0) Ur Specific [place] 1.025 (1.001-1.035) Urine Protein Negative (Negative) Urine Glucose (UA) Negative (Negative) Urine Ketones 1+ H (Negative) Urine Blood Negative (Negative) Urine Nitrite Negative (Negative) Urine Bilirubin Negative (Negative) Urine Urobilinogen <2.0 (<2.0) mg/dL Ur Leukocyte Esterase Negative (Negative) 02/06/19 12:32 EKG performed at 1158 shows sinus bradycardia, left axis deviation. Minimal voltage Kercher for LVH. There is a normal variant. Abnormal EKG noted. Ventricular rate of 59 beats were minute period. Her vitals 144 ms. She denominational is 100 ms. QT QTc is 442/437 ms. (Trina Carrasco) - Radiology Data There is a an obstructing 8 mm right mid ureteral calculus is a moderate right- sided hydronephrosis. (Trina Carrasco) Disposition Is patient prescribed a controlled substance at d/c from ED?: No Time of Disposition: 13:37 <Trina Carrasco - Last Filed: 02/06/19 13:36> <Ashlie Buchanan - Last Filed: 02/10/19 22:49> Clinical Impression: Right ureteral stone, Dehydration Disposition: ADMITTED IP TO THIS HOSP Condition: Stable
[2019-02-06] MEDS: SODIUM CHLORIDE 0.9% 1,000 ML IV STA ×2 (11:51→19:56)
[2019-02-06 12:06] LABS: Appearance,Urine Clear (Clear); Bilirubin,Urine Negative (Negative); Blood,Urine Negative (Negative); Color,Urine Yellow; Glucose,Urine (UA) Negative (Negative); Ketones,Urine 1+ (Negative); Leukocyte Esterase,Urine Negative (Negative); Nitrite,Urine Negative (Negative); Protein,Urine Negative (Negative); Specific Gravity,Urine 1.025 (1.001-1.035); Urobilinogen,Urine <2.0 mg/dL (<2.0)
[2019-02-06 12:10] LABS: Basophils % (A) 0 %; Eosinophils # (A) 0.2 k/uL (0-0.7); Eosinophils % (A) 3 %; HCT 46.2 % (39.0-53.0); Lymphocytes # (A) 1.6 k/uL (1.0-4.8); Lymphocytes % (A) 19 %; MCH 30.7 pg (25.0-35.0); MCHC 34.7 g/dL (31.0-37.0); MCV 88.5 fL (80.0-100.0); Mean Platelet Volume 5.4; Monocytes # (A) 0.9 k/uL (0-1.0); Monocytes % (A) 11 %; Neutrophils # (A) 5.3 k/uL (1.3-7.7); Neutrophils % (A) 65 %; Platelet Count 291 k/uL (150-450); RBC 5.22 m/uL (4.30-5.90); RDW 12.2 % (11.5-15.5); WBC 8.2 k/uL (3.8-10.6)
[2019-02-06 12:16] LABS: Albumin 4.2 g/dL (3.5-5.0); Calcium 9.1 mg/dL (8.4-10.2); Potassium 4.4 mmol/L (3.5-5.1); Total Bilirubin 1.9 mg/dL (0.2-1.3); Total Protein 7.3 g/dL (6.3-8.2)
[2019-02-06 12:21] LABS: Partial Thromboplastin Time 24.5 sec (22.0-30.0); Prothrombin Time 10.7 sec (9.0-12.0)
--- NOTE | 2019-02-06 12:33 | XR ---
EXAMINATION TYPE: XR KUB DATE OF EXAM: 02/06/2019 12:10 PM CLINICAL HISTORY: Known right ureteral calculus and abdominal pain TECHNIQUE: Single upright image of the abdomen is obtained. COMPARISON: CT dated 02/05/2019. FINDINGS: Questionable approximately 8 mm calculus overlies sacral ala, slightly inferior to the phys ician on the prior CT of 02/05/2019. The known right renal calculus that was nonobstructing on the ambrocio or CT in the superior calyx is obscured by bowel containing oral contrast from the prior CT. No dilat ed large or small bowel. Phleboliths within the pelvis. Lung bases are well aerated. IMPRESSION: Faint 8 mm density likely represents the distal ureteral calculus and overlies the right sacral ala, slightly inferior to the position on the prior CT.
[2019-02-06] MEDS ORDERED: TAMSULOSIN 0.4 MG CAP.ER.24H PO STA (13:08)
[2019-02-06] MEDS ORDERED: MORPHINE SULFATE 4 MG/ML SYRINGE IV PRN (13:37)
[2019-02-06] MEDS ORDERED: KETOROLAC 30 MG/ML 1 ML VIAL IVP PRN (13:37)
[2019-02-06] MEDS ORDERED: ONDANSETRON 4 MG/2 ML VIAL IVP PRN (13:37)
[2019-02-06] MEDS ORDERED: NALOXONE 0.4 MG/ML 1 ML VIAL IV PRN (13:37)
[2019-02-06] MEDS ORDERED: ACETAMINOPHEN TAB 325 MG TAB PO PRN (13:37)
[2019-02-06] MEDS: IBUPROFEN 400 MG TAB PO PRN (13:46)
[2019-02-06] MEDS: SODIUM CHLORIDE 0.9% 1,000 ML IV SCH ×2 (17:45→19:57)
--- NOTE | 2019-02-06 19:27 | P.GSHP ---
History of Present Illness H&P Date: 02/06/19 Chief Complaint: right sided flank pain Mr Davis is a 68-year-old male, who presented to the ED with right sided flank pain. He reports symptoms have been ongoing for last 4 days. His symptoms are associated with nausea. denies any fever/chills. Denies any dysuria or hemat uria. He underwent a CT which showed an 8 mm ureteral stone in distal ureter with non obstructing stone on the same side. In ED his creat is 1.6 from baseline of 0.8 - Constitutional Constitutional: Denies chills, Denies fatigue, Denies fever - EENT Ears, nose, mouth and throat: Denies dysphagia, Denies headache - Respiratory Respiratory: Denies cough, Denies dyspnea - Gastrointestinal Gastrointestinal: Reports abdominal pain, Reports nausea - Genitourinary (Female) Genitourinary: Reports flank pain, Reports kidney stones, Denies dysuria, Denies hematuria - Genitourinary (Male) Genitourinary: Reports kidney stones, Denies hematuria, Denies urinary retention - Neurological Neurological: Denies confusion, Denies weakness Past Medical History Past Medical History: Hyperlipidemia, Thyroid Disorder Additional Past Medical History / Comment(s): thyroid nodule History of Any Multi-Drug Resistant Organisms: None Reported Past Surgical History: Appendectomy Additional Past Surgical History / Comment(s): carpal tunnel 2015, NECK SURGERY Past Anesthesia/Blood Transfusion Reactions: No Reported Reaction Additional Past Anesthesia/Blood Transfusion Reaction / Comment(s): no hx blood transfusion Past Psychological History: No Psychological Hx Reported Smoking Status: Never smoker Past Alcohol Use History: None Reported Past Drug Use History: None Reported - Past Family History Mother Family Medical History: Cancer Additional Family Medical History / Comment(s): cervial Medications and Allergies Home Medications Medication Instructions Recorded Confirmed Type Pravastatin Sodium [Pravachol] 20 mg PO HS 04/11/18 02/06/19 History Gabapentin [Neurontin] 400 mg PO BID 04/17/18 02/06/19 History Levothyroxine Sodium [Synthroid] 100 mcg PO DAILY 02/06/19 02/06/19 History Multivitamins, Thera [Multivitamin 2 tab PO DAILY 02/06/19 02/06/19 History (formulary)] Naproxen Sodium [Aleve] 220 mg PO DAILY PRN 02/06/19 02/06/19 History Ondansetron [Zofran] 4 mg PO TID PRN 02/06/19 02/06/19 History Allergies Allergy/AdvReac Type Severity Reaction Status Date / Time codeine Allergy Swelling Verified 02/06/19 13:22 Penicillins Allergy Swelling Verified 02/06/19 13:22 phthalates Allergy sneezing Uncoded 02/06/19 10:57 and runny nose Surgical - Exam Vital Signs Temp Pulse Resp BP Pulse Ox 98 F 70 16 108/69 95 02/06/19 10:54 02/06/19 10:54 02/06/19 10:54 02/06/19 10:54 02/06/19 10:54 - General well developed, well nourished, no distress - Eyes normal ocular movement, no pale - ENT normal mucosa, no hearing loss - Respiratory normal expansion, normal respiratory effort - Abdomen Abdomen: soft, non tender, no distended - Musculoskeletal normal gait - Psychiatric oriented to time, oriented to person, oriented to place Results - Labs 02/06/19 11:50 02/06/19 11:50 Abnormal Lab Results - Last 24 Hours (Table) 02/06/19 02/06/19 Range/Units 11:50 11:50 BUN 26 H (9-20) mg/dL Creatinine 1.62 H (0.66-1.25) mg/dL Total Bilirubin 1.9 H (0.2-1.3) mg/dL Urine Ketones 1+ H (Negative) Diabetes panel 02/06/19 Range/Units 11:50 Sodium 139 (137-145) mmol/L Potassium 4.4 (3.5-5.1) mmol/L Chloride 100 (98-107) mmol/L Carbon Dioxide 27 (22-30) mmol/L BUN 26 H (9-20) mg/dL Creatinine 1.62 H (0.66-1.25) mg/dL Glucose 81 (74-99) mg/dL Calcium 9.1 (8.4-10.2) mg/dL AST 40 (17-59) U/L ALT 47 (21-72) U/L Alkaline Phosphatase 80 (38-126) U/L Total Protein 7.3 (6.3-8.2) g/dL Albumin 4.2 (3.5-5.0) g/dL Calcium panel 02/06/19 Range/Units 11:50 Calcium 9.1 (8.4-10.2) mg/dL Albumin 4.2 (3.5-5.0) g/dL Pituitary panel 02/06/19 Range/Units 11:50 Sodium 139 (137-145) mmol/L Potassium 4.4 (3.5-5.1) mmol/L Chloride 100 (98-107) mmol/L Carbon Dioxide 27 (22-30) mmol/L BUN 26 H (9-20) mg/dL Creatinine 1.62 H (0.66-1.25) mg/dL Glucose 81 (74-99) mg/dL Calcium 9.1 (8.4-10.2) mg/dL Adrenal panel 02/06/19 Range/Units 11:50 Sodium 139 (137-145) mmol/L Potassium 4.4 (3.5-5.1) mmol/L Chloride 100 (98-107) mmol/L Carbon Dioxide 27 (22-30) mmol/L BUN 26 H (9-20) mg/dL Creatinine 1.62 H (0.66-1.25) mg/dL Glucose 81 (74-99) mg/dL Calcium 9.1 (8.4-10.2) mg/dL Total Bilirubin 1.9 H (0.2-1.3) mg/dL AST 40 (17-59) U/L ALT 47 (21-72) U/L Alkaline Phosphatase 80 (38-126) U/L Total Protein 7.3 (6.3-8.2) g/dL Albumin 4.2 (3.5-5.0) g/dL - Imaging CT scan - abdomen: other (right distal ureteral stone with hydro) Assessment and Plan Assessment: 68 yo male with hx of 8 mm right distal ureteral stone, and non obstructing stone. on presentation his Creat is elevated to 1.61. Plan: -NPO past MN -IV fluid -OR tomorrow for cystoscopy, right ureteral stent placement, possible ureteroscopy and holmium laser lithotripsy
[2019-02-06] MEDS: GABAPENTIN 400 MG CAP PO SCH (19:55)
[2019-02-06] MEDS: LEVOTHYROXINE 100 MCG TAB PO SCH (19:55)
[2019-02-06] MEDS: PRAVASTATIN SODIUM 20 MG TAB PO SCH (19:56)
[2019-02-07] MEDS: LEVOTHYROXINE 100 MCG TAB PO SCH ×2 (05:12→08:30)
[2019-02-07] MEDS: SODIUM CHLORIDE 0.9% 1,000 ML IV SCH ×2 (05:26→21:13)
[2019-02-07] MEDS: GABAPENTIN 400 MG CAP PO SCH ×2 (08:30→21:18)
[2019-02-07] MEDS ORDERED: PANTOPRAZOLE 40 MG/10 ML VIAL IV SCH (09:00)
--- NOTE | 2019-02-07 14:48 | P.PN ---
Subjective Progress Note Date: 02/07/19 Principal diagnosis: Ureteral calculi No acute overnight events, pain is stable. Denies any nausea or vomiting Objective - Vital Signs Vital signs: Vital Signs Temp 98.5 F 02/07/19 07:02 Pulse 64 02/07/19 07:02 Resp 16 02/07/19 07:02 BP 115/73 02/07/19 07:02 Pulse Ox 94 L 02/07/19 07:02 Intake & Output 02/06/19 02/07/19 02/07/19 18:59 06:59 18:59 Intake Total 1440 Balance 1440 Weight 104.78 kg Intake: Intake, IV Titration 1200 Amount Sodium Chloride 0.9% 1, 1200 000 ml @ 100 mls/hr IV . Q10H ANTELMO Rx#:[id number] Oral 240 Other: Voiding Method Toilet Toilet Toilet # Voids 2 - Constitutional General appearance: Present: cooperative, no acute distress - EENT ENT: Present: hearing grossly normal - Gastrointestinal General gastrointestinal: Absent: distended, tenderness - Psychiatric Psychiatric: Present: A&O x's 3, appropriate affect - Labs CBC & Chem 7: 02/06/19 11:50 02/06/19 11:50 Assessment and Plan Assessment: 68 yo male with hx of 8 mm right distal ureteral stone, and 6 mm non obstructing stone. on presentation his Creat is elevated to 1.61. Plan: -Keep NPO -IV fluid -OR for cystoscopy, right ureteral stent placement, possible ureteroscopy and holmium laser lithotripsy -Discharge home after surgery
[2019-02-07] MEDS ORDERED: IV FLUID CONTINUATION 1,000 ML IV ONE (15:14)
[2019-02-07] MEDS ORDERED: ePHEDrine SULFATE/0.9% NACL/PF 50 MG/5 ML SYRINGE IV ONE (16:24)
[2019-02-07] MEDS ORDERED: fentaNYL (PF) 50 MCG/ML 2 ML AMP ONE (16:24)
[2019-02-07] MEDS ORDERED: MIDAZOLAM 2 MG/2 ML VIAL ONE (16:24)
[2019-02-07] MEDS ORDERED: LIDOCAINE 1% INJ 10MG/ML (20 ML MDV) ONE (16:24)
[2019-02-07] MEDS ORDERED: GLYCOPYRROLATE 0.2 MG/ML 2 ML VIAL ONE (16:24)
[2019-02-07] MEDS ORDERED: PROPOFOL 10 MG/ML 20 ML VIAL IV ONE (16:24)
[2019-02-07] MEDS ORDERED: GENTAMICIN 40 MG/ML 2 ML VIAL IVPB ONE (16:51)
[2019-02-07] MEDS ORDERED: IOPAMIDOL-370 50ML BTL MISCELLANE ONE (17:02)
[2019-02-07 21:05] VITALS: BP 125/84; PULSE 87; RESP 16; TEMP 98
[2019-02-07] MEDS: IBUPROFEN 400 MG TAB PO PRN (21:18)
[2019-02-07] MEDS: PRAVASTATIN SODIUM 20 MG TAB PO SCH (21:18)
--- NOTE | 2019-02-07 22:48 | FL ---
EXAMINATION TYPE: FL urography retrograde DATE OF EXAM: 02/07/2019 COMPARISON: NONE HISTORY: Fluoroscopy time TECHNIQUE: Fluoroscopy. FINDINGS: Fluoroscopic guidance was provided during procedure 14 seconds.. IMPRESSION: As Above.
--- NOTE | 2019-02-09 21:41 | P.OP ---
Date of Procedure: 02/07/19 Preoperative Diagnosis: Right ureteral calculi/right renal calculi Postoperative Diagnosis: Same Procedure(s) Performed: Cystoscopy, Right ureteroscopy, ureteral balloon dilation, holmium laser lithotripsy, and stent placement Implants: 6-[place] by 28 centimeters stent Anesthesia: RAINER Surgeon: Italo Mcclellan Estimated Blood Loss (ml): 5 Pathology: none sent Condition: stable Disposition: PACU Indications for Procedure: Mr. Davis is a 68-year-old male with a history of right-sided ureteral calculi and a right-sided renal calculi. He presented to the ED with pain and acute kidney injury secondary to stone. Given his TAMMY an pain decision was made to proceed with right ureteral stent placement and possible ureteroscopy with holmium laser stone basketing to address his stone. I discussed with him the risks including bleeding infection and injury to the ureter. I also discussed the risk from anesthesia including heart attack strokes or blood clots. He understood all the risk and agreed to proceed with surgery Operative Findings: distal ureteral, impacted at the distal ureter, stone partially through the ureteral narrowing Description of Procedure: The patient was brought to the operating room, sedation was induced. She was prepped and draped in sterile fashion and placed in a dorsal lithotomy position. Cystoscope fitted with a 22 sheath was inserted per urethra the left ureteral orifice was identified and intubated with a 0.035 sensor wire. Next we inserted a semi rigid ureteroscope, and attempted to advanced the scope through the ureteral orfice. But the ureteral orfice was narrowed. The ureteroscope was removed with wire in place. Next a 12-[place] balloon dilator was passed over the wire and the ureteral orifice was dilated using the balloon dilator. Next the ureteroscope was inserted and advanced up to the right ureteral orifice, at this point stone was noticed to be impacted at the distal ureter and the stone was partially through the narrowed portion of the ureter. at this time the stone was partially fragmented using the holmium laser. we attempted to laser the remaining stone that was proximal to the narrowed portion, but were unable to pass scope past the narrowed portion of the ureter. At this time the scope was removed. I then attempted to pas a 11-13 fr access sheath to the distal ureter, but was unable to advance the access sheath past the ureteral orfice. At this time decesion was made to proceed with stent placement. . A 6- [place] by 28 cm stent was passed over the wire the proximal curl was confirmed using the fluoroscopy while the distal curl was confirmed using the cystoscope. Patient tolerated procedure well was taken to recovery in stable condition
--- NOTE | 2019-02-09 21:42 | P.DS ---
Providers Date of admission: 02/06/19 13:05 Attending physician: Italo Mcclellan MD [facility] Course: Mr. Davis 68-year-old male presented to the ED with an obstructive resection ureteral stone. In the ED wasn't pain initially his creatinine was elevated to 1.6 from a baseline of 0.8. The patient was admitted to the hospital for hydration and ureteral stent placement. On 02/07 the patient was taken to the OR for right ureteral stent placement, Please see op note dated February 07 for full surgery detail. Patient was discharged home after the surgery Patient Condition at Discharge: Stable Plan - Discharge Summary Discharge Rx Participant: Yes New Discharge Prescriptions: New Tamsulosin [Flomax] 0.4 mg PO DAILY #30 cap Ibuprofen [Motrin] 600 mg PO Q8HR PRN #30 tab PRN Reason: Pain Ciprofloxacin HCl [Cipro] 250 mg PO Q12HR #6 tablet No Action Pravastatin Sodium [Pravachol] 20 mg PO HS Gabapentin [Neurontin] 400 mg PO BID Naproxen Sodium [Aleve] 220 mg PO DAILY PRN PRN Reason: Pain Multivitamins, Thera [Multivitamin (formulary)] 2 tab PO DAILY Levothyroxine Sodium [Synthroid] 100 mcg PO DAILY Ondansetron [Zofran] 4 mg PO TID PRN PRN Reason: Nausea Discharge Medication List Pravastatin Sodium [Pravachol] 20 mg PO HS 04/11/18 [History] Gabapentin [Neurontin] 400 mg PO BID 04/17/18 [History] Levothyroxine Sodium [Synthroid] 100 mcg PO DAILY 02/06/19 [History] Multivitamins, Thera [Multivitamin (formulary)] 2 tab PO DAILY 02/06/19 [History] Naproxen Sodium [Aleve] 220 mg PO DAILY PRN 02/06/19 [History] Ondansetron [Zofran] 4 mg PO TID PRN 02/06/19 [History] Ciprofloxacin HCl [Cipro] 250 mg PO Q12HR #6 tablet 02/07/19 [Rx] Ibuprofen [Motrin] 600 mg PO Q8HR PRN #30 tab 02/07/19 [Rx] Tamsulosin [Flomax] 0.4 mg PO DAILY #30 cap 02/07/19 [Rx] Follow up Appointment(s)/Referral(s): Italo Mcclellan MD [STAFF PHYSICIAN] - 1 Week Joseph Landin DO [Primary Care Provider] - 1-2 days Patient Instructions/Handouts: *Surgery [facility] - (Anesthesia) Discharge Instructions Outpatient Surgery, Ureteroscopy (DC) Activity/Diet/Wound Care/Special Instructions: Drink plenty of fluid You may see someone in the urine You can use Tylenol in addition to the ibuprofen for pain Follow-up in 1 week from the stent removal Discharge Disposition: HOME SELF-CARE
== END 2019-02-07 23:46 | disposition home or self-care (01) ==
LOC: EC 10:45 → 3NMEDONC 13:05 → 4SSUR 16:51
PROVIDERS: ADMIT Urology; ATTEND Urology
DX: N13.2 Hydronephrosis with renal and ureteral calculous obstruction (principal); E86.0 Dehydration; N17.9 Acute kidney failure, unspecified; R00.1 Bradycardia, unspecified; E78.5 Hyperlipidemia, unspecified; E04.1 Nontoxic single thyroid nodule; K08.89 Other specified disorders of teeth and supporting structures; Z79.899 Other long term (current) drug therapy; Z79.890 Hormone replacement therapy; Z88.5 Allergy status to narcotic agent; Z88.0 Allergy status to penicillin; Z91.09 Other allergy status, other than to drugs and biological substances; Z90.49 Acquired absence of other specified parts of digestive tract; Z98.890 Other specified postprocedural states; Z86.69 Personal history of other diseases of the nervous system and sense organs; Z80.49 Family history of malignant neoplasm of other genital organs
CPT/HCPCS: 52356; 96375 ×2; 96361; 96374; 99285; 36415; 93005; 80053; 82150; 83690; 85025; 85610; 85730; 81003; 74420; 74018; G0378 ×3; C2625; C1769; C1894; J2250; J2270; J1580; J2405 ×2; J2001; J3010; J1885; J2704; C9113; Q9967

== ENCOUNTER → 2019-08-19 | Outpatient (CLI) | payer MEDICARE, BC ==
--- NOTE | 2019-08-19 12:20 | XR ---
Left ankle HISTORY: Pain, trauma 3 views the left ankle Small ossific density at the posterior ankle joint is well-corticated and not felt likely to be acute . Spurring is present at the tibiotalar joint. There is a small plantar calcaneal spur. Alignment and joint spaces, bone mineralization are maintained. IMPRESSION: No fracture or dislocation.
== END | disposition home or self-care (01) ==
LOC: RADXRYALE 09:11
PROVIDERS: ATTEND Physician Assistant Medical
DX: M25.572 Pain in left ankle and joints of left foot (principal); S90.912A Unspecified superficial injury of left ankle, initial encounter

== ENCOUNTER → 2019-10-24 | Outpatient (CLI) | payer MEDICARE, BC ==
--- NOTE | 2019-10-24 13:57 | US ---
EXAMINATION TYPE: US kidneys/renal and bladder DATE OF EXAM: 10/24/2019 COMPARISON: CT CLINICAL HISTORY: N20.0 Calculus of kidney. H/O renal calculus EXAM MEASUREMENTS: Right Kidney: 10.9 x 5.7 x 4.8 cm Left Kidney: 12.2 x 5.8 x 4.7 cm Right Kidney: Appeared wnl Left Kidney: Cyst upper pole= 2.3 x 1.8 x 1.9 cm Bladder: wnl Bilateral Jets seen: Yes There is no evidence for hydronephrosis at this point in time. No nephrolithiasis is seen. No reji s are identified. The urinary bladder is anechoic. Bilateral ureteral jets are seen. IMPRESSION: No evidence of hydronephrosis or nephrolithiasis. There is a simple appearing cyst involving the left kidney.
== END | disposition home or self-care (01) ==
LOC: RADUSWWP 13:28
PROVIDERS: ATTEND Urology
DX: N28.1 Cyst of kidney, acquired (principal)
CPT/HCPCS: 76770

== ENCOUNTER → 2021-01-10 | Outpatient (CLI) | payer MEDICARE, BC ==
--- NOTE | 2021-01-10 16:01 | XR ---
EXAMINATION TYPE: XR chest 2V DATE OF EXAM: 01/10/2021 COMPARISON: Chest x-ray 04/05/2018 HISTORY: [id number] SOB,COUGH,WHEEZING TECHNIQUE: Frontal and lateral views of the chest are obtained. FINDINGS: There is no focal air space opacity, pleural effusion, or pneumothorax seen. The cardiac silhouette size is stable. The osseous structures are showing postop change in the lower cervical s pine region, possibly upper thoracic spine. Retrocardiac density with central lucencies consistent wi th hiatal hernia. IMPRESSION: No acute cardiopulmonary process.
== END | disposition home or self-care (01) ==
LOC: RADXRYALE 13:22
PROVIDERS: ATTEND Physician Assistant Medical
DX: R06.02 Shortness of breath (principal); R05 Cough; R06.2 Wheezing
CPT/HCPCS: 71046

== ENCOUNTER → 2022-10-30 | Outpatient (CLI) | payer MEDICARE, BC ==
--- NOTE | 2022-10-30 11:16 | XR ---
EXAMINATION TYPE: XR shoulder complete RT DATE OF EXAM: 10/30/2022 COMPARISON: NONE HISTORY: Pain TECHNIQUE: Three views are submitted. FINDINGS: The osseous structures are intact. There is no acute fracture or dislocation. Mild AC joint arthropa thy. IMPRESSION: 1. No acute process.
--- NOTE | 2022-10-30 11:19 | XR ---
EXAMINATION TYPE: XR cervical spine comp DATE OF EXAM: 10/30/2022 COMPARISON: NONE HISTORY: Postop TECHNIQUE: Five views submitted FINDINGS: Postsurgical changes involving the lower cervical spine appear stable. Mild diffuse osteopenia. Degenerative changes atlantoaxial joint. Mild foraminal encroachment noted b ilaterally at multiple levels extending from C3 through C7 with more moderate changes seen at C6-C7 o n the left. IMPRESSION: 1. Postsurgical changes stable. Suspect multilevel foraminal encroachment
== END | disposition home or self-care (01) ==
LOC: RADXRYALE 09:47
PROVIDERS: ATTEND Physician Assistant Medical
DX: M50.30 Other cervical disc degeneration, unspecified cervical region (principal); M54.12 Radiculopathy, cervical region; M25.511 Pain in right shoulder; Z98.890 Other specified postprocedural states
CPT/HCPCS: 72050

== ENCOUNTER 2023-11-27 15:15 | Emergency (ER) | payer MEDICARE, BC ==
--- NOTE | 2023-11-27 15:39 | ED ---
Extremity Problem HPI - General Source: patient, RN notes reviewed Mode of arrival: wheelchair Limitations: no limitations <Rupali Zamora - Last Filed: 11/27/23 15:38> - General Source: patient, RN notes reviewed Mode of arrival: ambulatory Limitations: no limitations <Joseph Bennett - Last Filed: 11/27/23 19:50> - General Stated complaint: R Leg Pain Time Seen by Provider: 11/27/23 15:38 - History of Present Illness Initial comments: Quick note: 73-year-old male presented to ER with a chief complaint of right groin pain. Patient states has been going on for the past couple days. He was seen by PCP and got a dose of steroids and pain medication. He states pain has persisted. Denies any recent travel, history of blood clots or blood thinner use. Denies any shortness of breath, chest pain or palpitations. No known injuries (Rupali Zamora) 73-year-old male presents emergency department chief complaint of right groin pain. Patient states she has had pain for several weeks but has worsened the last couple days the point where it is very difficult to walk because of the pain. He saw his PCP yesterday did receive Toradol and Solu-Medrol. Patient states that pain is worse today. Patient states laying down flat with his legs up helps states certain positional changes do help but walking and sitting in a chair worse patient denies any bowel, bladder and cons retention no saddle a nesthesias no lower extremity weakness (Joseph Bennett) - Related Data Home Medications Medication Instructions Recorded Confirmed Pravastatin Sodium [Pravachol] 40 mg PO HS 04/11/18 08/21/22 Gabapentin [Neurontin] 400 mg PO BID 04/17/18 08/21/22 Levothyroxine Sodium [Synthroid] 100 mcg PO QAM 02/06/19 08/21/22 Aspirin [Adult Low Dose Aspirin EC] 81 mg PO DAILY 08/21/22 08/21/22 Metoprolol Tartrate 25 mg PO BID 08/21/22 08/21/22 Nitroglycerin 0.4 mg PO DIRECTED PRN 08/21/22 08/21/22 Omeprazole [PriLOSEC] 20 mg PO Q48H 08/21/22 08/21/22 Ubidecarenone [Co Q-10] 1 tab PO DAILY 08/21/22 08/21/22 Previous Rx's Medication Instructions Recorded HYDROcodone/APAP 7.5-325MG [[place] 1 tab PO Q6HR PRN 3 Days #12 tab 11/27/23 7.5-325] predniSONE 50 mg PO DAILY #5 tab 11/27/23 Allergies Allergy/AdvReac Type Severity Reaction Status Date / Time codeine Allergy Swelling Verified 11/27/23 15:40 Penicillins Allergy Swelling Verified 11/27/23 15:40 sulfamethoxazole Allergy Swelling Verified 11/27/23 15:40 [From Bactrim] trimethoprim [From Bactrim] Allergy Swelling Verified 11/27/23 15:40 Review of Systems ROS Other: All systems not noted in ROS Statement are negative. <Rupali Zamora - Last Filed: 11/27/23 15:38> ROS Other: All systems not noted in ROS Statement are negative. <Joseph Bennett - Last Filed: 11/27/23 19:50> ROS Statement: Those systems with pertinent positive or pertinent negative responses have been documented in the HPI. Past Medical History Past Medical History: Hyperlipidemia, Thyroid Disorder Additional Past Medical History / Comment(s): IRREGULAR HEART RATE. thyroid nodule History of Any Multi-Drug Resistant Organisms: None Reported Past Surgical History: Appendectomy Additional Past Surgical History / Comment(s): carpal tunnel 2015, NECK SURGERY Past Anesthesia/Blood Transfusion Reactions: No Reported Reaction Additional Past Anesthesia/Blood Transfusion Reaction / Comment(s): no hx blood transfusion Past Psychological History: No Psychological Hx Reported Smoking Status: Never smoker Past Alcohol Use History: None Reported Past Drug Use History: None Reported - Past Family History Mother Family Medical History: Cancer Additional Family Medical History / Comment(s): cervial <Rupali Zamora - Last Filed: 11/27/23 15:38> General Exam <Rupali Zamora - Last Filed: 11/27/23 15:38> Limitations: no limitations General appearance: alert, in no apparent distress Head exam: Present: atraumatic, normocephalic, normal inspection Neck exam: Present: normal inspection, full ROM. Absent: tenderness, meningismus, lymphadenopathy Respiratory exam: Present: normal lung sounds bilaterally. Absent: respiratory distress, wheezes, rales, rhonchi, stridor Cardiovascular Exam: Present: regular rate, normal rhythm, normal heart sounds. Absent: systolic murmur, diastolic murmur, rubs, gallop, clicks GI/Abdominal exam: Present: soft, normal bowel sounds. Absent: distended, tenderness, guarding, rebound, rigid Extremities exam: Present: full ROM, tenderness (Hip) Back exam: Present: full ROM, tenderness, paraspinal tenderness. Absent: vertebral tenderness Neurological exam: Present: alert, oriented X3, CN II-XII intact, reflexes normal. Absent: motor sensory deficit <Joseph Bennett - Last Filed: 11/27/23 19:50> - General Exam Comments Initial Comments: Visual Physical Exam Vital signs reviewed General: Well-appearing, nontoxic, no acute distress. Head: Normocephalic, atraumatic Eyes: PERRLA, EOMI ENT: Airway patent Chest: Nonlabored breathing Skin: No visual rash, normal skin tone Neuro: Alert and oriented 3 Musculoskeletal: No gross abnormalities (Rupali Zamora) Course Vital Signs 11/27/23 15:38 Temperature 98 F Pulse Rate 62 Respiratory 16 Rate Blood Pressure 147/83 O2 Sat by Pulse 98 Oximetry Medical Decision Making <Rupali Zamora - Last Filed: 11/27/23 15:38> <Joseph Bennett - Last Filed: 11/27/23 19:50> - Medical Decision Making I performed the quick note portion of this chart. Electronically signed by Rupali Zamora PA-C (Rupali Zamora) Was pt. sent in by a medical professional or institution ([facility], [facility], urgent care, hospital, or jail...) When possible be specific @ -No Did you speak to anyone other than the patient for history (EMS, parent, family, police, friend...)? What history was obtained from this source @ -No Did you review nursing and triage notes (agree or disagree)? Why? @ -I reviewed and agree with nursing and triage notes Were old charts reviewed (outside hosp., previous admission, EMS record, old EKG, old radiological studies, urgent care reports/EKG's, jail records)? Report findings @ -No old charts were reviewed Differential Diagnosis (chest pain, altered mental status, abdominal pain women, abdominal pain men, vaginal bleeding, weakness, fever, dyspnea, syncope, headache, dizziness, GI bleed, back pain, seizure, CVA, palpatations, mental health, musculoskeletal)? @ -Differential Back Pain: Strain, zoster, cauda equina syndrome, epidural abscess, vertebral osteomyeli tis, discitis, fracture, subluxation, disc herniation, DJD, spinal stenosis, dissection, AAA, pancreatitis, peptic ulcer disease, pyelonephritis, kidney stone, this is not meant to be an all-inclusive list. EKG interpreted by me (3pts min.). @ -None X-rays interpreted by me (1pt min.). @ -X-ray lumbar spine showing significant degenerative changes X-ray right hip there is no acute fracture patient has mild osteoarthritis CT interpreted by me (1pt min.). @ -None done U/S interpreted by me (1pt. min.). @ -None done What testing was considered but not performed or refused? (CT, X-rays, U/S, labs )? Why? @ -None What meds were considered but not given or refused? Why? @ -None Did you discuss the management of the patient with other professionals (professionals i.e. , PA, [facility], lab, RT, psych nurse, social sciences department chair, vp platforms, teacher, emergency communications officer, case packer)? Give summary @ -No Was smoking cessation discussed for >3mins.? @ -No Was critical care preformed (if so, how long)? @ -No Were there social determinants of health that impacted care today? How? (Homelessness, low income, unemployed, alcoholism, drug addiction, transportation, low edu. Level, literacy, decrease access to med. care, long-term, rehab)? @ -No Was there de-escalation of care discussed even if they declined (Discuss DNR or withdrawal of care, Hospice)? DNR status @ -No What co-morbidities impacted this encounter? (DM, HTN, Smoking, COPD, CAD, Cancer, CVA, ARF, Chemo, Hep., AIDS, mental health diagnosis, sleep apnea, morbid obesity)? @ -None Was patient admitted / discharged? Hospital course, mention meds given and route, prescriptions, significant lab abnormalities, going to OR and other pertinent info. @ -Discharge patient presented for right groin, back pain. Patient has lumbar radiculopathy questionable hip osteoarthritis. Patient will follow-up with orthopedics return for as discussed. Undiagnosed new problem with uncertain prognosis? @ -No Drug Therapy requiring intensive monitoring for toxicity (Heparin, Nitro, Insulin, Cardizem)? @ -No Were any procedures done? @ -No Diagnosis/symptom? @ -Lumbar radiculopathy, hip pain right Acute, or Chronic, or Acute on Chronic? @ -Acute Uncomplicated (without systemic symptoms) or Complicated (systemic symptoms)? @ -Uncomplicated Side effects of treatment? @ -No Exacerbation, Progression, or Severe Exacerbation? @ -No Poses a threat to life or bodily function? How? (Chest pain, [place], NH, pneumonia, PE, COPD, DKA, ARF, appy, cholecystitis, CVA, Diverticulitis, Homicidal, Suicidal, threat to staff... and all critical care pts) @ -No (Joseph Bennett) Disposition <Rupali Zamora - Last Filed: 11/27/23 15:38> Is patient prescribed a controlled substance at d/c from ED?: Yes When asked, does pt state using other controlled substances?: No If prescribed controlled substance>3 days was MAPS reviewed?: Prescribed <3 Days If opioid is for acute pain is fill amount 7 days or less?: Yes If Rx opioid, was Start Talking consent form obtained?: Yes Time of Disposition: 19:20 <Joseph Bennett - Last Filed: 11/27/23 19:50> Clinical Impression: Right hip pain, Lumbar radiculopathy, acute Disposition: HOME SELF-CARE Condition: Stable Instructions (If sedation given, give patient instructions): Lumbar Radiculopathy (ED) Additional Instructions: Please return to the Emergency Department if symptoms worsen or any other concerns. Prescriptions: HYDROcodone/APAP 7.5-325MG [[place] 7.5-325] 1 tab PO Q6HR PRN 3 Days #12 tab PRN Reason: Pain predniSONE 50 mg PO DAILY #5 tab Referrals: Audelia Liu PAC [REFERRING] - 1-2 days Dallas Womack DO [Doctor of Osteopathic Medicine] - 1-2 days
[2023-11-27] MEDS: HYDROmorphone 1 MG/ML 1 ML SYRINGE IM STA (18:09)
--- NOTE | 2023-11-27 18:10 | US ---
EXAMINATION TYPE: US venous doppler duplex LE RT DATE OF EXAM: 11/27/2023 3:39 PM COMPARISON: NONE CLINICAL INDICATION: Male, 73 years old with history of groin pain; Patient states groin pain since y esterday. No hx of DVT. Patient not on thinners. SIDE PERFORMED: Right TECHNIQUE: The lower extremity deep venous system is examined utilizing real time linear array sonog rudy with graded compression, doppler sonography and color-flow sonography. VESSELS IMAGED: Common Femoral Vein Deep Femoral Vein Greater Saphenous Vein * Femoral Vein Popliteal Vein Small Saphenous Vein * Proximal Calf Veins (* superficial vessels) Right Leg: Appears negative for DVT IMPRESSION: 1. Right lower extremity ultrasound negative for deep venous thrombosis. [facility], , 11/27/2023 6:08 PM
--- NOTE | 2023-11-27 18:50 | XR ---
EXAMINATION TYPE: XR lumbar spine 2 or 3V DATE OF EXAM: 11/27/2023 COMPARISON: None HISTORY: Pain TECHNIQUE: 3 view lumbar spine FINDINGS: There 5 lumbar-type vertebral bodies. Pedicles are intact. There is loss of disc height L5- S1. Grade 1 spondylolisthesis approaching grade 2 spondylolisthesis is present at L5-S1. There is los s of disc height posteriorly at L4-5. Mild diffuse loss of disc height is present L3-4. Vertebral bod y heights are preserved. IMPRESSION: 1. Grade 1 to grade 2 spondylolisthesis of L5 and S1. 2. Degenerative disc changes L3-4 through L5-S1, greatest at L5-S1. [facility], , 11/27/2023 6:48 PM
--- NOTE | 2023-11-27 18:53 | XR ---
EXAMINATION TYPE: XR Hip RT and AP Pelvis DATE OF EXAM: 11/27/2023 COMPARISON: None HISTORY: Pain right leg TECHNIQUE: AP pelvis 2 view right hip FINDINGS: Femoral heads articulate with the acetabulum. No acute fractures or dislocations evident. S ome pubic symphysis and sacroiliac joints are normal. Normal bowel gas is present. Femoral head articulates with the acetabulum at the right hip. No acute fracture is evident. IMPRESSION: 1. No acute osseous abnormality right hip and AP pelvis. [facility], , 11/27/2023 6:50 PM
[2023-11-27] MEDS: HYDROcodone/APAP 7.5-325MG 1 EACH TAB PO ONE (20:22)
[2023-11-27] MEDS: predniSONE 50 MG TAB PO STA (20:22)
[2023-11-27 20:31] VITALS: BP 128/79; PULSE 89; RESP 18; TEMP 97.9
== END 2023-11-27 20:31 | disposition home or self-care (01) ==
LOC: EC 15:15
DX: M79.604 Pain in right leg
CPT/HCPCS: 72100; 73502; 96372; 99284

== ENCOUNTER → 2023-12-12 | Outpatient (CLI) | payer MEDICARE, BC ==
--- NOTE | 2023-12-12 09:57 | MR ---
EXAMINATION TYPE: MR lumbar spine wo con DATE OF EXAM: 12/12/2023 COMPARISON: Lumbar spine radiograph 12/03/2023, 11/27/2023, CT abdomen and pelvis 02/05/2019 HISTORY: Low back pain into rt lower extremity TECHNIQUE: Multiplanar, multisequence images of the lumbar spine were acquired without IV contrast. FINDINGS: The lumbar vertebral bodies do have preserved heights. Grade 1 anterolisthesis of L5 on S1 with bilateral pars defects. Mild retrolisthesis of L3 on L4. Type II Modic changes most pronounced at the endplates of L3-L4 and L5-S1. Multilevel disc desiccation is present. Prominent disc height lo ss at L3-L4 and L5-S1. Incidental fatty filum terminale. The conus medullaris appears within normal l imits. There is increased T1 signal identified on only axial sequence within the anterior aspect of t he spinal canal from the T12-L5. This is most consistent with CSF flow artifact. L1-L2: No significant disc pathology is identified. The spinal canal and neural foramen are patent. L2-L3: Broad-based disc bulge without significant central canal stenosis. Bilateral facet arthropath y. No significant neural foraminal stenosis.. L3-L4: Right paracentral caudal disc extrusion with mild to moderate effacement of the anterolateral right thecal sac. The extrusion extends approximately 1.8 cm along the posterior aspect of the L4 ve rtebral body and extends into the L4-L5 right subarticular zone with effacement of the exiting nerve root. Bilateral facet arthropathy. Mild to moderate left and severe right neural foraminal stenosis. L4-L5: Broad-based disc bulge is identified with associated enlargement of the facet joints. The spi nal canal remains patent. Moderate left and severe right neural foraminal stenosis. Caudal extrusion from above extends into the right subarticular zone with effacement of the exiting nerve root. L5-S1: Grade 1 anterolisthesis with uncovering of the disc. No significant central canal stenosis. Bi lateral facet arthropathy. Moderate right and severe left neural foraminal stenosis. Mildly prominent epidural fat is identified. Other significant findings: None. IMPRESSION: 1. Prominent L4-L5 right paracentral caudal disc extrusion resulting in mild to moderate effacement of the anterior lateral right thecal sac. Extends caudally about 1.8 cm into the right subarticular z one of L5-S1 with effacement of the exiting nerve root. 2. Multilevel disc degeneration with associated osteoarthritic changes. Varying degrees of significa nt neural foraminal stenosis as described above. 3. Grade 1 anterolisthesis of L5 on S1 with bilateral pars defects. Mild retrolisthesis of L3 on L4. [facility], , 12/12/2023 9:55 AM
== END | disposition home or self-care (01) ==
LOC: RADMRIMAIN 06:36
PROVIDERS: ATTEND Orthopaedic Surgery
DX: M47.816 Spondylosis without myelopathy or radiculopathy, lumbar region
CPT/HCPCS: 72148

== ENCOUNTER → 2024-03-06 | Outpatient (CLI) | payer MEDICARE, BC | END | disposition home or self-care (01) | LOC: LABPAT 09:26 | PROVIDERS: ATTEND Orthopaedic Surgery | DX: M43.06 Spondylolysis, lumbar region (principal); Z22.322 Carrier or suspected carrier of Methicillin resistant Staphylococcus aureus | CPT/HCPCS: 36415; 86850; 86900; 86901; 87070 ==

== ENCOUNTER 2024-03-11 10:01 | Inpatient (IN) | payer MEDICARE, BC ==
[2024-03-06 12:41] VITALS: BMI 32.9
--- NOTE | 2024-03-11 06:54 | P.HPOR ---
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 The patient reports constant aching lumbar pain radiating into the right groin, buttock region, and bilateral lower extremities, with symptoms worsening during [id number] transitions and prolonged standing. Imaging studies revealed Grade II spondylolisthesis spondylolysis of L5-S1 with bilateral foraminal stenosis, severe degenerative changes L3-S1, and moderate to severe stenosis. Physical examination demonstrated restricted lumbar ROM, positive straight leg raise bilaterally, and decreased motor strength in lower extremities. After failed conservative treatments including physical therapy, medications, and HARSHAD, the patient has elected to proceed with L3-Pelvis decompression with posterolateral and interbody fusion surgery. The patient has obtained clearance from both PCP and cardiology. PERIOP PLAN: PLANNED PROCEDURE: L3-Pelvis decompression with posterolateral and interbody fusion INPATIENT >2 MN A LINE/CENTRAL LINE STANDARD PRE OP PROTOCOL FOR ABX AND TXA ATTENDING ATTESTATION: I have personally reviewed the history, physical examination findings, and assessment performed by Dr. Womack. I have also independently evaluated the patient and reviewed all available imaging studies. I agree with the documented findings and proposed surgical plan for L3-Pelvis decompression with posterolateral and interbody fusion. The medical necessity for this procedure is well-established based on: 1. Progressive neurological symptoms with documented weakness 2. Grade II spondylolisthesis with bilateral pars defects at L5-S1 3. Severe multi-level stenosis (L3-S1) with neurogenic claudication 4. Failed conservative management including PT, HARSHAD, and medications 5. Significant functional decline affecting ADLs I have personally reviewed all surgical risks, benefits, and alternatives with the patient and their spouse. They demonstrate clear understanding and wish to p roceed. I have also reviewed the surgical approach, including the use of navigation, interbody devices, and instrumentation extending to the pelvis. The planned procedure and its complexity are appropriate given the pathology. The patient has obtained appropriate medical clearance. I agree with proceeding with surgery as planned. Time spent in direct patient care and medical decision makin minutes Greater than 50% spent in counseling regarding surgical procedure, risks, benefits, and alternatives. 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 Davis presents to the office today, 03/06/23, for a Pre-op appointment to proceed with his surgery od L3-Pelvis decompressin with posterolateral interbody fusion. He describes a constant aching lumbar pain that has been ongoing for many years and progressing over the last few months. In addition to his lumbar pain he states it radiates into the right groin and buttock region, as well as down the bilateral lower extremities. He states his pain is increased with sit to stand and prolonged standing. Patient notes his pain is 50% back and 50% legs. He is currently taking Gabapentin without resolution of his symptoms. He does report that he has clearance from PCP and Cardio. He is H8 Patient denies any f/c/sob/cp, perineal numbness or tingling, bowel, or bladder incontinence/retention. Patient is ambulatory independently. P1 The patients past social, medical, family, surgical history, as well as review of systems, have been reviewed. Please refer to the History and Physical form that has been scanned into our electronic medical record system. R0 16 points review of systems completed and as stated in HPI, all other systems reviewed are negative. PAST TREATMENTS: PAST IMAGING: YES, MRI, XR, CT - TRAUMA RELATED: NO - WORK RELATED: NO - PT IN LAST 6 MONTHS: YES -No improvement PHYSICIAN DIRECTED HOME EXERCISE PROGRAM: YES -Mild sx improvement for short time, then returns ACTIVITY MODIFICATION: YES -Limited BLTPP 20lbs ADLs limited secondary to condition Unable to do most things he wants to at this time. MEDICATIONS: YES -OTC meds - no sustained relief Rx meds - some relief when on them, but cannot take risk lead due to side effects and once he is off them all sx return ALTERNATIVE INTERVENTIONS (CHIROPRACTIC, ACUPUNCTURE, MASSAGE, RICE): YES -RICE when able BRACING: NO - INJECTIONS (HARSHAD, TF, RFA): YES -HARSHAD MEDICAL HISTORY: Past Medical History: REVIEWED STATED IN CHART Past Surgical History: REVIEWED STATED IN CHART Social History: REVIEWED STATED IN CHART SMOKING: Former, quit >20 years ago ETOH: None SUBSTANCES: None Family History: REVIEWED STATED IN CHART P1 Current Medications: Rx: gabapentin 400 mg capsule Ref: 0 Instructions: take 1 capsule (400 mg) by oral route 2 times per day Rx: levothyroxine 100 mcg tablet Ref: 0 Instructions: take 1 tablet (100 mcg) by oral route once daily Rx: metoprolol tartrate 25 mg tablet Ref: 0 Instructions: take 1 tablet (25 mg) by oral route 2 times per day Rx: pravastatin 80 mg tablet Ref: 0 Instructions: take 1 tablet (80 mg) by oral route once daily Rx: PriLOSEC Ref: 0 P1 PHYSICAL EXAM: General: AOX3, NAD, Well hydrate, well nourished HEENT: No lumps or masses Extremities: No color changes, no pooling INTEGUMENT: Appearance: Normal color and turgor Surgical Incisions: NA Hairy Patches: ABSENT Dorsal Skin Dimples: Normal [employer] spots: ABSENT PALPATION: TTP Midline: YES Paracervical: NO Parathoracic: NO Paralumbar: YES SIJ TESTING: TESTED * [place] Finger: POS * FABER4: POS BL * Compression: POS * Distraction: NEG * Thigh thrust: POS * Hip thrust: neg POSTURAL BALANCE: Coronal: BALANCED Sagittal: ++ Shoulder height: LEVEL Pelvic Girdle: LEVEL ROM AND APPEARANCE: Neck: UNRESTRICTED Lumbar: RESTRICTED with pain Shoulders: Symmetrical Hips: Symmetrical Knees: Symmetrical Hands: Symmetrical Feet: Symmetrical VASCULAR STATUS: PALPABLE PULSES B/L UE AND LE 2/4 RAD/ULNAR/DP/PT Edema: NONE NEUROLOGICAL EXAMINATION: Mental Status: Awake, alert, fully oriented with normal attention, concentration, and memory. Fluent appropriate speech. CRANIAL NERVES: I: Olfactory not assessed. II: Visual acuity normal, no visual field deficit noted with confrontation. III, IV: Normal pupillary reflexes & intact extraocular movements without nystagmus. V, : Intact symmetrical facial sensation. VII: Intact symmetrical facial motor movement: Hearing intact. IX, X: Intact gag, swallow, & normal voice. XI: Sternocleidomastoid, trapezius function intact. XII: Tongue midline with normal movements. TENSIONING: * L'HERMITTE'S SIG:NEG SPURLUNG'S SIGN:NEG CUBITAL TUNNEL COMPRESSION:NEG TINELS AT WRIST:NEG STRAIGH LEG RAISE:POS, TENSIONING BL CONTRALATERAL STRAIGHT LEG RAISE: TENSIOING MOTOR EXAM (0-5/5, NT) Muscle appearance: Symmetrical, atrophy noted in the left calf and right thigh. There is some atrophy of the left calf as well. UPPER EXTREMITY RIGHT LEFT Shoulder Abduction 5 5 Biceps 5 5 Triceps 5 5 Wrist Extension 5 5 Hand Intrinsics 5 5 Vp Human Resources 5 5 LOWER EXTREMITY RIGHT LEFT Hip Flexion 4+ 4+ Knee Extension 4 4 Knee Flexion 4 4 Dorsiflexion 4 4 Plantarflexion 4 4- EHL 4- 4 FHL 4- 3 REFLEXES (0-4/2, NT): RIGHT LEFT Bicep 2 2 Brachioradialis 2 2 Triceps 2 2 Patellar 1 1 Achilles 1 1 PATHOLOGICAL REFLEXES: RIGHT LEFT SANCHEZ'S ABSENT ABSENT CLONUS ABSENT ABSENT BABINSKI ABSENT ABSENT RECTAL TONE: INTACT/NT SENSATION (0-4, NT): Sensation intact to LT and Pain * C5-T1 distribution BUE * L2-S2 distribution BLE *Exceptions below* DERMATOMAL DEFICIT/RADICULAR PATTERN: L3-S1 GAIT AND FUNCTIONAL EVALUATION: AMBULATORY AID NONE ROMBERG'S TEST INTACT HAND AND FINGER DEXTERITY INTACT YES DYSDIADOCHOKINESIA EXAM NEG B/L YES TOE/HEEL WALK INTACT WITH GOOD BALANCE NO SQUAT AND RISE W/O ASSISTANCE TO 60 DEG KNEE FLEXION NO SINGLE LEG STANCE INTACT TRENDELENBURG NEG IMAGING: XRay Lumbar Multiview (AP, Lateral, Flexion, Extension) with AP pelvis; [facility] Moderate to severe spondylitic and degenerative changes, most significant L L3- S1. Multilevel diminished disc height, most prominent L5-S1. There is a grade 2 unstable spondylolisthesis with spondylolysis L5 onto S1. Type II Modic changes to the superior endplate L4 vertebral body. No acute osseous abnormalities. Pelvis: The visualized sacrum and iliac wings are within normal limits. SI joint sclerosis noted with narrwoing. Cystic formation and degenerative changes. MRI Date: 12/12/23 Location: [facility] Region: Lumbar spine Contrast: N IMAGES ARE REVIEWED WITH THE PATIENT IN OFFICE AND DEMONSTRATE THE FOLLOWING: FINDINGS: -Grade II spondylolisthesis spondylolysis of L5-S1 with b/l foraminal stenosis, and central stenosis due to the slip as well as degenerative changes, HNP and ligamental overgrowth. There is severe facet arthropathy and pars defect b/l with elongation and interval hypertrophic healing changes. -Severe degenerative changes L3-S1 with disc collpase, modic endplate changes Type II along with degenerative disc herniations causing moderate to severe st enosis at these levls. There is lateral recess and sub facet stenosis related as well that is moderate to severe. Ligamental hypertrophy, facet arthropathy and bogginess as well as cysts all contribute to the stenosis centrally and foraminally. -No acute fractures -No lesions. IMPRESSION: It was my pleasure to have seen and examined Pravin. I reviewed the patient's clinical syndrome, physical findings, and imaging studies during the appointment today. It is my impression that the patient has a diagnosis of. 1.L5-S1 Grade 2 unstable spondylolisthesis and spondylolysis 2.L3-S1 spondylosis with stenosis, severe 3.Lower extremity radiculopathy 4. Lower extremity weakness 5. Neurogenic claudication PLAN: DISCUSSION: -I have discussed with the patient his clinical signs and symptoms as well as treatment options, rrisks, benefits, potential outcomes and alternatives. He understands. At this poing his functional decline is evident and he is unhappy that he is unable to do his normal ADLs without sigificant debiliyt. He states he wants a more permanend solution to his issues and to stop with the "bandaids". He elects to proceed as follows: SURGICAL RECOMMENDATION -L3-PELVIS DECOMPRESSION WITH POSTEROLATERAL AND INTERBODY FUSION, WITH DEFORMITY CORRECTION AND LISTHESIS CORRECTION. Spine Surgery Risk Review Mr. Davis is presenting for evaluation of lumbar pain. It was my pleasure to have seen and examined Mr. Davis. In our visit today we have had a chance to go over subjective complaints, physical examination findings and treatments including the natural course history without intervention and various interventional options. The patients imaging demonstrates: XRay Lumbar Multiview (AP, Lateral, Flexion, Extension) with AP pelvis; [facility]: Moderate to severe spondylitic and degenerative changes, most significant L L3- S1. Multilevel diminished disc height, most prominent L5-S1. There is a grade 2 unstable spondylolisthesis with spondylolysis L5 onto S1. Type II Modic changes to the superior endplate L4 vertebral body. No acute osseous abnormalities. Pelvis: The visualized sacrum and iliac wings are within normal limits. SI joint sclerosis noted with narrwoing. Cystic formation and degenerative changes. MRI Date: 12/12/23 Location: [facility] Region: Lumbar spine Contrast: N IMAGES ARE REVIEWED WITH THE PATIENT IN OFFICE AND DEMONSTRATE THE FOLLOWING: FINDINGS: -Grade II spondylolisthesis spondylolysis of L5-S1 with b/l foraminal stenosis, and central stenosis due to the slip as well as degenerative changes, HNP and ligamental overgrowth. There is severe facet arthropathy and pars defect b/l with elongation and interval hypertrophic healing changes. -Severe degenerative changes L3-S1 with disc collpase, modic endplate changes Type II along with degenerative disc herniations causing moderate to severe stenosis at these levls. There is lateral recess and sub facet stenosis related as well that is moderate to severe. Ligamental hypertrophy, facet arthropathy and bogginess as well as cysts all contribute to the stenosis centrally and foraminally. -No acute fractures -No lesions. CT PENDING On physical exam, Mr. Davis demonstrates: He describes a constant aching lumbar pain that has been ongoing for many years and progressing over the last month. In addition to his lumbar pain he states it radiates into the right groin and buttock region, as well as down the bilateral lower extremities. He states his pain is increased with sit to stand and prolonged standing. Patient notes his pain is 50% back and 50% legs. I have explained to the patient that as their condition progresses it will cause further neurological deficits and eventual paralysis. Based on the patients imaging, physical exam, and the rapid progression and disabling nature of their symptoms, at this time I recommend surgery in the form of a: L3-Pelvis decompression and fusion. I discussed the risk and benefits of this procedure at length with Mr. Davis. The patient AND agreed to considered pursuing the procedure abovementioned. Prior to surgery, she should follow up with her PCP (Cardio, ID, IM etc) for clearance. Questions were invited and answered, and the patient wishes to proceed as outlined below. Currently, I am recommendin.L3-PELVIS DECOMPRESSION WITH POSTEROLATERAL AND INTERBODY FUSION 2.Follow up with PCP for surgical clearance 3.Review of surgical risks and benefits as well as an educational packet on the proposed surgical procedure. Risks: All surgical procedures come with inherent risks, including those related to positioning, anesthesia, intraoperative findings, and postoperative complications. It is important to understand that surgery does not come with any guarantee of a successful outcome as complications and adverse events are always possible. The patient was given a handout in office today discussing the surgical procedure and risks associated with the intervention, both of which were discussed with the patient. These risks include but are not limited to the fol lowing: * Experiencing same, different or even worse symptoms in back, neck, arms, or legs compared to before surgery. Requiring further surgery or other forms of treatment presently or at some time in the future at same or other levels of the intended spine surgery. On an extreme but fortunately relatively rare basis severe complication such as blindness, stroke, heart attack, temporary and/or permanent nerve injury, paralysis, coma, or may occur, sometimes without known explanation. Surgical complications may include but are not limited to risk of infection, fluid accumulation in the surgical dissection site, including a seroma or hematoma, that requires additional surgery, wound drainage, bleeding, new numbness or weakness, vision changes/loss, spinal fluid leakage, non-healing and/or infected incision, headaches, difficulty or inability to swallow, hoarseness, hemopneumothorax, pneumothorax, impotence, retrograde ejaculation, vaginal dryness; injury to nerves, spinal cord, blood vessels, lymphatics or other vital organs (i.e., bowel injury, injury to the great vessels); heterotopic bone formation; complications related to the hardware such as screws , rods, cages including misplaced hardware, device failure, instrumentation at the wrong spine level, hardware fracture/breakage, or hardware loosening; vertebral failure of the spinal column above or below the newly placed hardware; retained surgical instrumentations or devices and the need for further surgery. * Medical risks of the planned spine surgery include but are not limited to generalized Infections to the whole body or local areas outside of the surgical site (sepsis), heart attack, bleeding, anaphylaxis, meningitis, seizure, epilepsy, hearing loss, burn covarrubias, laceration of the head or other areas of the body, bruising, hypersensitivity of the skin, bladder over distension; allergic reaction; shoulder injury related to positioning; fat, blood and air clots to other areas of the body like heart, lungs, brain; failure of internal organs such as lungs, kidneys, liver and excessive bleeding. If blood transfusions are necessary, note that transfusions may cause intolerance reactions such as anaphylaxis or other complex reactions. Despite best efforts, the results of spine surgery might not heal in terms of bone, soft tissues such as skin, fascia, ligaments, and joints. Additionally, in order to achieve best possible results, spine surgery may be carried out beyond the initially planned levels and involve decompression, fusion including insertion of hardware at levels other than the original intended area of surgical interest change some portions of the procedure in order to ensure the best possible outcomes. With spine surgery and spinal fusion, there are different off label uses of instrumentation (devices, implants and hardware) as well as biological substances (bone morphogenic proteins, demineralized bone matrix) as well as using extra bone from allograft sources (i.e. cadaver bone) or autograft (iliac crest bone, ribs, or the spine itself). The patient has been given information about these practices and their inherent risks and benefits. [facility] is an educational center that serves as a training facility for neurosurgical and orthopedic [employer] and Nursing students. Physician assistants are medically trained surgical providers who function in the outpatient, inpatient, and operating room setting under the direct supervision of the attending surgeon. [facility] has multiple operating rooms with single and overlapping rooms running daily. They currently function under the required guidelines as produced by the [facility] Finance Committee with regards to the overlapping rooms and will continue to comply with changes to this policy as they occur. The requirements include and are complied with as follows: (1) the critical portions of the overlapping rooms will not occur at the same time, (2) the attending physician will be physically present during the critical portions of the procedure and immediately available during the entire case, and (3) a back-up attending is designated should the primary attending not be immediately available. The patient has had a chance to review all the listed information, has been given print outs detailing this information, and has had all his/her questions answered to their satisfaction. It was my pleasure to have seen and examined Mr. Davis. In our visit today we have had a chance to go over my understanding of our patient's current condition, the natural course history without intervention and various interventional options. Questions were invited and answered, and the patient wishes to proceed as outlined above. I have seen and examined the patient for 25 minutes and we have spent more than 50% of the time in repeat and detailed counseling about the patient's condition, its natural course history with out and as much as can be predicted with surgery and re-review of various surgical treatment options. In conclusion, Mr. Davis and HIS requested we proceed with the above suggested surgery and are willing to accept risks and limitations of the suggested surgery as nature of the disease process and our best attempts at treatment for the condition. SURGICAL AND CPT CODE RATIONALE: Planned Procedure: L3-Pelvis Decompression and Fusion with Posterolateral and Interbody Fusion, Including Deformity Correction Potential CPT Codes with Rationale: - 55934: Lumbar fusion combined anterior/posterior technique, single interspace - Justified by L5-S1 Grade II spondylolisthesis requiring deformity correction and stabilization - 10454: Each additional interspace (x2) - Required for L3-4 and L4-5 levels due to severe stenosis and degenerative changes - 51177: Insertion of interbody biomechanical device - Necessary for anterior column support and listhesis reduction - 07426: Decompression of spinal cord, nerve root(s) including facetectomy, foraminotomy - Required for severe central, lateral recess, and foraminal stenosis at L5-S1 - 96663: Each additional segment (x2) - Necessary for decompression at L3-4 and L4-5 due to documented stenosis -11863: Instrumentation 3-6 segments -27846: Attachment to pelvis -72395: Use of [employer] Navigation for assisance in accurate screw placement AUTHORIZATION RATIONALE: Authorization for surgical intervention is warranted based on: 1. Failed Conservative Management: - Documented trial of physical therapy without improvement - Failed response to HARSHAD injections - Inadequate relief with medications (Gabapentin) - Activity modifications unsuccessful 2. Progressive Neurological Deficit: - Documented bilateral lower extremity weakness (4/4+ out of 5) - Muscle atrophy in bilateral calves and right thigh - Positive straight leg raise testing bilaterally - L3-S1 dermatomal deficits 3. Structural Pathology: - Grade II spondylolisthesis with bilateral pars defects at L5-S1 - Dynamic instability confirmed on flexion/extension films - Moderate to severe multi-level stenosis (L3-S1) - Significant facet arthropathy and ligamentous hypertrophy 4. Functional Decline: - Unable to perform ADLs independently - Difficulty with [id number] transfers - Cannot perform toe/heel walking - Unable to squat and rise independently 5. Progressive Nature: - Documented progression of symptoms - Risk of further neurological deterioration without intervention - Mechanical instability requiring stabilization - Failed response to all conservative measures MEDICAL NECESSITY: Surgical intervention is medically necessary due to progressive neurological deterioration with documented weakness, muscle atrophy, and failed conservative management. Imaging confirms severe structural pathology including Grade II spondylolisthesis, bilateral pars defects, and multi-level stenosis causing neurogenic claudication. The patient's functional decline, including inability to perform ADLs and difficulty with mobility, combined with progressive neurological compromise, warrants surgical intervention. The proposed L3-pelvis decompression and fusion with deformity correction is appropriate given the instability pattern, degree of listhesis, and multi-level involvement. Without intervention, the patient is at risk for further neurological deterioration and potential permanent disability given the unstable nature of the spondylolisthesis and severity of stenosis. FOLLOW UP: Post-op PLAN AT NEXT VISIT: RECHECK AND post-op PATIENT EDUCATION: Medications Reviewed: YES In our visit today Mr. Davis and I have had a chance to go over my understanding of the patient's current condition, the natural course history without intervention and various interventional options. Questions were invited and answered, and the patient wishes to proceed as outlined above. I will be sure to keep you updated after Mr. Davis returns here for further follow-up. Thank you again for your referral. Please do not hesitate to contact me if you have any further questions. Signed and authenticated by: Past Medical History Past Medical History: Hearing Disorder / Deafness, Hyperlipidemia, Thyroid Disorder Additional Past Medical History / Comment(s): IRREGULAR HEART RATE. Mild hearing loss. Thyroid nodule. History of Any Multi-Drug Resistant Organisms: None Reported Past Surgical History: Appendectomy, Orthopedic Surgery Additional Past Surgical History / Comment(s): Carpal tunnel surgery, neck surgery. Past Anesthesia/Blood Transfusion Reactions: No Reported Reaction Additional Past Anesthesia/Blood Transfusion Reaction / Comment(s): No hx blood transfusion. Smoking Status: Never smoker - Past Family History Mother Family Medical History: Cancer Additional Family Medical History / Comment(s): Cervical cancer. Medications and Allergies Home Medications Medication Instructions Recorded Confirmed Type Gabapentin [Neurontin] 400 mg PO BID 04/17/18 03/06/24 History Levothyroxine Sodium [Synthroid] 100 mcg PO DAILY 02/06/19 03/06/24 History Metoprolol Tartrate 25 mg PO BID 08/21/22 03/06/24 History Omeprazole [PriLOSEC] 20 mg PO Q48H 08/21/22 03/06/24 History Pravastatin Sodium [Pravachol] 80 mg PO DAILY 03/06/24 03/06/24 History Allergies Allergy/AdvReac Type Severity Reaction Status Date / Time codeine Allergy Swelling Verified 03/06/24 12:15 Penicillins Allergy Swelling Verified 03/06/24 12:15 sulfamethoxazole Allergy Swelling Verified 03/06/24 12:15 [From Bactrim] trimethoprim [From Bactrim] Allergy Swelling Verified 03/06/24 12:15 Physical Examination Osteopathic Statement: *. No significant issues noted on an osteopathic structural exam other than those noted in the History and Physical/Consult.
[~2024-03-11 10:01] MED LIST changes: -BACITRACIN 50,000 UNIT, POLYMYXIN B 500,000 UNIT in SODIUM CHLORIDE 0.9% IRRIGATIO 1,00... IRRIGATION ONE; -CLINDAMYCIN 900 MG in DEXTROSE 5% IN WATER 50 ML IVPB ONE; +LIDOCAINE 1% (10MG/ML) FOR IV START INTRADERMA PRN; +ONDANSETRON 4 MG/2 ML VIAL IVP PRN; +TRANEXAMIC 1,000 MG/100ML-NACL 1,000 MG in SALINE 1 100ML.BAG IVPB PRN; -ceFAZolin IN SWFI 2 GM/20 ML SYRINGE IVP ONE
[2024-03-11] MEDS: IV FLUID CONTINUATION 1,000 ML IV ONE ×2 (10:56→11:01)
[2024-03-11] MEDS: LACTATED RINGERS 1,000 ML IV SCH (11:08)
[2024-03-11] MEDS: DEXAMETHASONE SOD PHOSPHATE 4 MG/ML 1 ML VIAL IV ONE (11:08)
[2024-03-11] MEDS: GABAPENTIN 300 MG CAP PO PRN (11:09)
[2024-03-11] MEDS: ONDANSETRON 4 MG/2 ML VIAL IVP ONE (11:09)
[2024-03-11] MEDS: ACETAMINOPHEN TAB 500 MG TAB PO PRN (11:09)
[2024-03-11] MEDS: MIDAZOLAM 2 MG/2 ML VIAL IV ONE (11:48)
[2024-03-11] MEDS ORDERED: PROPOFOL 10 MG/ML 20 ML VIAL IV ONE (12:04)
[2024-03-11] MEDS ORDERED: WATER FOR INJECTION, STERILE 10 ML VIAL IV ONE (12:04)
[2024-03-11] MEDS ORDERED: HYDROmorphone (PF) 1 MG/ML ONE (12:04)
[2024-03-11] MEDS ORDERED: SUCCINYLCHOLINE CHLORIDE 200 MG/10 ML VIAL IV ONE (12:04)
[2024-03-11] MEDS ORDERED: MIDAZOLAM 2 MG/2 ML VIAL ONE (12:04)
[2024-03-11] MEDS ORDERED: TRANEXAMIC 1,000 MG/100ML-NACL PREMIX BAG ONE (12:04)
[2024-03-11] MEDS ORDERED: NEOSTIGMINE 1 MG/ML 10 ML VIAL ONE (12:04)
[2024-03-11] MEDS ORDERED: ePHEDrine 50 MG/ML 1 ML VIAL ONE (12:04)
[2024-03-11] MEDS ORDERED: fentaNYL (PF) 50 MCG/ML 2 ML AMP ONE (12:04)
[2024-03-11] MEDS ORDERED: KETAMINE HCL IN 0.9 % NACL 50 MG/5 ML SYRINGE ONE (12:04)
[2024-03-11] MEDS ORDERED: GLYCOPYRROLATE 0.2 MG/ML 2 ML VIAL ONE (12:04)
[2024-03-11] MEDS ORDERED: ROCURONIUM 10 MG/ML (5 ML VIAL) IV ONE (12:04)
[2024-03-11] MEDS ORDERED: PHENYLEPHRINE-0.9% NACL SYG 1,000 MCG/10 ML SYRINGE ONE (12:04)
[2024-03-11] MEDS ORDERED: LIDOCAINE 1% INJ 10MG/ML (20 ML MDV) ONE (12:04)
[2024-03-11] MEDS: LACTATED RINGERS 1,000 ML IV ONE ×2 (12:47→16:00)
[2024-03-11] MEDS: THROMBIN (BOVINE) 5,000 UNIT VIAL MISCELLANE ONE (12:56)
[2024-03-11] MEDS: GENTAMICIN 80 MG in SODIUM CHLORIDE 0.9% IRRIGATIO 3,000 ML IRRIGATION ONE (14:41)
[2024-03-11] MEDS: ceFAZolin 3,000 MG in SODIUM CHLORIDE 0.9% IRRIGATIO 3,000 ML IRRIGATION ONE (14:41)
[2024-03-11] MEDS ORDERED: HYDROcodone/APAP 5-325MG 1 EACH TAB PO PRN (15:10)
[2024-03-11] MEDS ORDERED: MAGNESIUM HYDROXIDE 2,400 MG/30 ML CUP PO PRN (15:10)
[2024-03-11] MEDS ORDERED: SENNOSIDES-DOCUSATE SODIUM 1 EACH TAB PO PRN (15:10)
[2024-03-11] MEDS: VANCOMYCIN 1,000 MG VIAL MISCELLANE ONE (16:16)
--- NOTE | 2024-03-11 16:43 | P.OP ---
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 Lower extremity weakness 5. Neurogenic claudication Postoperative Diagnosis: 1.L5-S1 Grade 2 unstable spondylolisthesis and spondylolysis 2.L3-S1 spondylosis with stenosis, severe 3.Lower extremity radiculopathy 4. Lower extremity weakness 5. Neurogenic claudication Procedure(s) Performed: 1. L5-S1 INTRADISCAL OSTEOTOMY, 3 COLUMN FOR DEFORMITY CORRECTION 2. L4-5 INTRADISCAL OSTEOTOMY, 3 COLUMN FOR DEFORMITY CORRECTION 3. L3-4 POSTEROLATERAL AND INTERBODY FUSION 4. L4-5 POSTEROLATERAL AND INTERBODY FUSION 5. L5-S1 POSTEROLATERAL AND INTERBODY FUSION 6. L3-PELVIS SEGMENTAL INSTRUMENTATION 7. ATTACHMENT OF THE CAUDAL END OF CONSTRUCT TO THE BONY PELVIS, NOT SACRUM 8. L3-4, L4-5, L5-S1 BILATERAL LAMINECTOMY, COMPLETE FACETECTOMY AND FORAMINOTOMY FOR COMPLETE NEURAL DECOMPRESSION, DEFORMITY CORRECTION AND CAGE PLACEMENT 9. INSERTION OF BIOMECHANICAL DEVICES L3-4, L4-5, L5-S1 CAGES, x3. USE OF IONM ALL SCREWS TESTING >15 mA MOD 22: THIS CASE TOOK 75% LONGER THAN EXPECTED DUE TO PATIENT BODY HABITUS, BMI > 30, SEVERITY OF LUMBAR DISEASE AND HIGH TECHNICALITY OF THE CASE. Implants: -AIDE EVEREST RODS AND SCREWS -SI BONE GRANIT PELVIC SCREWS 70 MM -GLOBUS SABLE CAGES x3 8 DEG, 15 DEG, 15 DEG; 10MM, 12 MM, 12MM -DBM FIBER BOATS, ARTHROCELL, ALLOCELL, CONTOUR, MAGNATOS, AUTOGRAFT Anesthesia: JANNAA Surgeon: Dallas Womack Alarm Mechanic #1: Rivka Leblanc (was present and assisted from positioining to final cage placement) Alarm Mechanic #2: Patel Scherer (was present and assisted from final cage placement to dressing placement) Estimated Blood Loss (ml): 700 IV fluids (ml): 2,100 Urine output (ml): 250 Pathology: none sent Condition: stable Disposition: PACU Indications for Procedure: Mr. Davis is presenting for evaluation of lumbar pain. It was my pleasure to have seen and examined Mr. aDvis. In our visit today we have had a chance to go over subjective complaints, physical examination findings and treatments including the natural course history without intervention and various interventional options. The patients imaging demonstrates: XRay Lumbar Multiview (AP, Lateral, Flexion, Extension) with AP pelvis; [facility]: Moderate to severe spondylitic and degenerative changes, most significant L L3- S1. Multilevel diminished disc height, most prominent L5-S1. There is a grade 2 unstable spondylolisthesis with spondylolysis L5 onto S1. Type II Modic changes to the superior endplate L4 vertebral body. No acute osseous abnormalities. Pelvis: The visualized sacrum and iliac wings are within normal limits. SI joint sclerosis noted with narrwoing. Cystic formation and degenerative changes. MRI Date: 12/12/23 Location: [facility] Region: Lumbar spine Contrast: N IMAGES ARE REVIEWED WITH THE PATIENT IN OFFICE AND DEMONSTRATE THE FOLLOWING: FINDINGS: -Grade II spondylolisthesis spondylolysis of L5-S1 with b/l foraminal stenosis, and central stenosis due to the slip as well as degenerative changes, HNP and ligamental overgrowth. There is severe facet arthropathy and pars defect b/l with elongation and interval hypertrophic healing changes. -Severe degenerative changes L3-S1 with disc collpase, modic endplate changes Type II along with degenerative disc herniations causing moderate to severe stenosis at these levls. There is lateral recess and sub facet stenosis related as well that is moderate to severe. Ligamental hypertrophy, facet arthropathy and bogginess as well as cysts all contribute to the stenosis centrally and foraminally. -No acute fractures -No lesions. CT PENDING On physical exam, Mr. Davis demonstrates: He describes a constant aching lumbar pain that has been ongoing for many years and progressing over the last month. In addition to his lumbar pain he states it radiates into the right groin and buttock region, as well as down the bilateral lower extremities. He states his pain is increased with sit to stand and prolonged standing. Patient notes his pain is 50% back and 50% legs. I have explained to the patient that as their condition progresses it will cause further neurological deficits and eventual paralysis. Based on the patients imaging, physical exam, and the rapid progression and disabling nature of their symptoms, at this time I recommend surgery in the form of a: L3-Pelvis decompression and fusion. I discussed the risk and benefits of this procedure at length with Mr. Davis. The patient AND agreed to considered pursuing the procedure abovementioned. Prior to surgery, she should follow up with her PCP (Cardio, ID, IM etc) for clearance. Questions were invited and answered, and the patient wishes to proceed as outlined below. Currently, I am recommendin.L3-PELVIS DECOMPRESSION WITH POSTEROLATERAL AND INTERBODY FUSION Description of Procedure: L3-PELVIS DECOMPRESSION AND FUSION, XAVIER (FREE HAND) The patient was seen and examined in the preoperative area. All preoperative protocols were followed. Informed consent was obtained, risks and benefits of the procedure were discussed at length. Risks including bleeding infection damage to the surrounding tissue and risk of reoperation were discussed with the patient. Risk of anesthesia up to and including was discussed with the patient. These are outlined in the risk review. They were willing to accept these risks and all the risks of surgery. The patient was given a weight-based dose of antibiotics in the form of 3 g Ancef. The patient was seen and evaluated by the anesthesia team who deemed them fit for surgery. The site was marked, the patient was willing to proceed with the procedure. The patient was transferred to the operative suite by the Department of anesthesia. They were then drifted off to sleep by the department anesthesia and GETA was performed. The patient tolerated this well. Sue catheter was placed by nursing staff, a-traumatically. Once confirmation of lines and ventilation the patient was transferred to a prone Trios spine table very carefully. The head was secured and stable. X Ray confirmed alignment. All bony prominences including wrists, elbows, axilla, chest, hips, and thighs, and feet were padded very well. Special attention was paid to the genitalia, and these were padded accordingly. SCDs were placed on bilateral lower extremities and were connected. Arms were well padded and placed at 90/90 up and out and well padded. Safety strap and tape placed on the patient. Once in position, again we confirmed good ventilation capabilities and that lines were running appropriately. The patient's lumbosacral pelvic was then exposed. Hair was removed for incision. 1010s were placed outlining the incision site. Standard alcohol was used to clean the incision site and allowed to dry. C-arm was used to bio-joanne the patient and confirm level for incision which was marked with a skin marker. Operative briefing was performed with all teams and everyone in agreement to proceed. The patient was then prepped and draped in a normal sterile fashion. Timeout was then performed, and all parties agreed with the procedure to be performed. Midline skin incision was then made over the previously bookmarked area and dissection taken down to the lumbosacral fascia which was identified and cleaned with a murillo. There was excessive sub-q adipose that was obtrusive and needed to be retracted. Once midline was identified, fasciotomy was made over the SP of L2-S1 and pelvis. Subperiosteal dissection was then taken down over the lamina and facet joints and TPs were exposed and trough made posterolateral. TPs were then decorticated with a high speed olivier for lateral fusion. Dissection was taken out over the sacrum to the pelvis. SI joint identified and modified Nnues starting point for pelvic screws identified as well. Retractors placed. Wound was irrigated and lateral image with penfield 4 placed at the pars of L4 confirmed levels for operation. Screws were then placed from L3-Pelvis using a free hand technique with fluoroscopic guidance. Under Lateral guidance, a high speed olivier was used to make a car pilot hole followed by a pedicle finder that was passed through the pedicle into the body. A ball tip probe then confirmed within the pedicle. The screw was then measured and placed under lateral fluoroscopic guidance. After screws were placed from L3-S1, AP image confirmed safe placement of screws. Lateral images as well as Judet views were then used to place bilateral SI bone Granit pelvic screws. Starting point selected just lateral to the SI joint and S2 pseudo facet. Lateral image taken and olivier used to make the car pilot hole. Gearshift then used to pass into the pelvis under lateral imaging just above the sciatic notch. 30 deg/30deg iliac oblique then taken to confirm within the teardrop and ball tip probe used to probe good bone. The screw was then measured and selected and placed under lateral imaging. This was repeated on the contralateral side. Screws were then visualized and appeared safe. Screws were then tested, and reliably tested screws tested above 15 mA. Screws were then placed after decortication of the SIJ bilaterally in these positions. They were confirmed to be in good position on AP, Inlet and Outlet views. We then proceeded to decompression and interbody placement. Starting at L5-S1, bilateral laminectomy, complete facetectomy and foraminotomies were performed using high speed bur, Kerrison rongeur. There was exuberant bone formation throughout the entire lumbar spine, making the case very meticulous and difficult. Severe stenosis with dural scarring was noted at L3-S1. There was significant scar tissue surrounding these joints as well as the dura due to pars defect. Once exposed the neural elements were protected and an intradiscal osteotomy, 3 column, was performed for deformity correction at L5- S1. Osteotome was used to make osteotomy in L5 and S1 and for complete disc removal. A box osteotome was then used to widen this bilaterally. This was passed into the anterior 1/3 of L5. This allowed for loosening of this level and correction. A cage was then selected based on shaving and trials. Bleeding endplates were encountered and cartilage removed. Autograft, allograft were then placed anterior to the cage. The cage was then impacted into place under lateral imaging while protecting neural elements. The cage was then expanded into position and showed good lift and correction. Yazidism of lordosis and height achieved. Meticulous hemostasis then performed. Cage was backfilled with DBM and the area irrigated. At L4-5, bilateral laminectomy, complete facetectomy and foraminotomy were performed as described above. Again, exuberant bone formation was encountered and at this level. There was also a large disc osteophyte complex that was identified once disc space was found. The dura was carefully dissected off this anteriorly and b/l. Once encountered, the disc space was then accessed in a similar fashion and neural elements protected. Intradiscal, 3 column osteotomies, for deformity correction was then performed again at this level as described above. Once completed and complete discectomy performed there was good mobility at this level. Cage was then sized and selected. Autograft and allograft was then placed anterior in the disc space and the cage was then inserted and impacted into place under lateral. AP image, as before, was taken to ensure midline placement. The cage was then expanded into position. This restored height, lordosis and alignment well. The cage was tested and was stable. The wound was irrigated. Meticulous hemostasis then performed. At L3-4, bilateral laminectomy, complete facetectomy and foraminotomy were performed. Again exuberant bone formation noted and encountered along with dural scarring and ligamental cyst formations. The elements were then protected, and disc space accessed. Sequential shaving performed until desired height and lordosis. Cage selected, and graft placed anterior to the cage within the disc space. Cage was then placed under lateral image, expanded and had good height, lordosis and deformity correction. The wound was irrigated, and meticulous hemostasis performed once again. Attention was then drawn to oxana placement. Rods were selected, measured, cut and bent to appropriate lordosis. They were then secured into pelvic screws b/l. Sequential reduction then done into each screw and set screw placed. Set screws were then final tightened and lateral image showed good lordosis reduction and sagittal alignment. The wound was then irrigated with 3L Ancef irrigation, 3L gentamicin irrigation, 3L Irricept through the case and 1L Betadine at the end of the case and 3L NSS. Surgicel was then placed on the dura, which was inspected and had no injury. Then, in the posterolateral gutter was placed, MagnatOs, Autograft and allograft. This was impacted into position and surgical placed over it. 2g Vanco powder was then placed deep in the wound. A deep, subfascial drain was placed and a superficial facial drain placed. We then proceeded with layered closure. #1 PDS placed in the deep fascia. 0 Vicryl placed in the deep subq, 2-0 placed in the superficial subq and kailey placed in the skin. The wound edges approximated very well. The wound was then cleaned with ETOH and dressed with adaptic, 4x4, ABD and tape. Drains sewed into position. IONM confirmed no changes. The patient was then transferred off the [facility] spine table to their hospital bed a-traumatically. Drains continued to hold suction. The patient was then extubated and transferred to the PACU/ICU in stable condition having tolerated the procedure with no complications.
--- NOTE | 2024-03-11 16:53 | FL ---
EXAMINATION TYPE: FL guidance operating room, XR lumbar spine 2 or 3V DATE OF EXAM: 03/11/2024 4:44 PM COMPARISON: Pre Operative Images if available both CT/MRI or plain film CLINICAL INDICATION: Male, 73 years old with history of PLDF LUMBAR STENOSIS; TECHNIQUE: FL guidance operating room, XR lumbar spine 2 or 3V, multiple fluoroscopic images provided for procedure. Total fluoroscopy time: 2 min 5 seconds Total submitted images to PACS: 11 DAP: 42.338 mGym2 Gycm2 uGym2 cGycm2 or equivalent. FINDINGS: Fluoroscopic images during internal fixation/arthroplasty demonstrate hardware in appropriate positio n. Hardware appears intact. No immediate complication identified. IMPRESSION: 1. No evidence for intraoperative complication. 2. Please see the operative/procedural note for further details. [facility], , 03/11/2024 4:50 PM
[2024-03-11] MEDS: fentaNYL (PF) 50 MCG/ML 2 ML AMP IV PRN (17:22)
[2024-03-11] MEDS: HYDROmorphone 0.5 MG/0.5 ML SYRINGE IVP PRN (18:37)
[2024-03-11] MEDS: HYDROcodone/APAP 10-325MG 1 EACH TAB PO PRN (20:22)
[2024-03-11] MEDS: CYCLOBENZAPRINE 5 MG TAB PO PRN (20:22)
[2024-03-11] MEDS: ACETAMINOPHEN TAB 325 MG TAB PO SCH (20:26)
[2024-03-11] MEDS: droPERidol 5 MG/2 ML VIAL IVP ONE (20:26)
[2024-03-11] MEDS: GABAPENTIN 400 MG CAP PO SCH (21:13)
[2024-03-11] MEDS: HYDROmorphone 1 MG/ML 1 ML SYRINGE IVP PRN (21:14)
--- NOTE | 2024-03-12 01:29 | P.HPIM ---
History of Present Illness H&P Date: 03/12/24 Chief Complaint: medical management consultation Patient is a 73-year-old male with lumbar stenosis, spondylolisthesis, and radiculopathy who is status post L3 to pelvis decompression and fusion. Sound physicians consulted for medical management patient states his pain is co ntrolled. Past medical history is significant for hypothyroidism, hypertension, hyperlipidemia, and GERD. No recent labs. Patient resting comfortably in bed denies any acute complaints at this time. Pertinent positives and negatives as discussed in HPI, a complete review of systems was performed and all other systems are negative. Patient seen and examined at bedside. Physical examination: Vital signs reviewed as temperature 97.9, heart rate 98, respiratory rate 15, blood pressure 113/71, O2 saturation 92% on room air General: nontoxic, no distress, appears at stated age Derm: warm, dry, intact Head: atraumatic, normocephalic, symmetric Eyes: anicteric sclera Mouth: no lip lesion, mucus membranes moist Cardiovascular: S1 S2 reg, no murmur Lungs: CTA bilateral, no rhonchi, no rales, no accessory muscle use Abdominal: soft, non-tender to palpation, nondistended Extremities: No cyanosis, clubbing, or pedal edema. Neuro: Alert, Oriented to person, time and place, Gross neurological examination did not reveal any focal deficits. Cranial nerves II to XII grossly intact. Bilateral upper and lower extremity muscle strength intact and sensation intact. Psych: well appearing, appropriate affect Assessment/Plan: Lumbar stenosis, spondylolisthesis and radiculopathy status post L3 to pelvis decompression and fusion Pain control per primary team DVT prophylaxis per primary team Hypothyroidism Resume Synthroid 100 mcg daily Hypertension Resume metoprolol 25 mg twice daily Hyperlipidemia Continue Pravachol 80 mg daily GERD Continue omeprazole 20 mg CODE STATUS: Full code Discussed with: Patient Check cbc cmp in AM Patient has been medically optimized for discharge. Thank you for this consultation we will continue to follow. I have seen and evaluated the patient today. I Discussed the case with the resident and agree with the resident's findings I edited the assessment and plan as necessary as documented in the resident's note. Past Medical History Past Medical History: Hearing Disorder / Deafness, Hyperlipidemia, Thyroid Disorder Additional Past Medical History / Comment(s): IRREGULAR HEART RATE. Mild hearing loss. Thyroid nodule. History of Any Multi-Drug Resistant Organisms: None Reported Past Surgical History: Appendectomy, Orthopedic Surgery Additional Past Surgical History / Comment(s): Carpal tunnel surgery, neck surgery. Past Anesthesia/Blood Transfusion Reactions: No Reported Reaction Additional Past Anesthesia/Blood Transfusion Reaction / Comment(s): No hx blood transfusion. Smoking Status: Never smoker - Past Family History Mother Family Medical History: Cancer Additional Family Medical History / Comment(s): Cervical cancer. Medications and Allergies Home Medications Medication Instructions Recorded Confirmed Type Gabapentin [Neurontin] 400 mg PO BID 04/17/18 03/06/24 History Levothyroxine Sodium [Synthroid] 100 mcg PO DAILY 02/06/19 03/06/24 History Metoprolol Tartrate 25 mg PO BID 08/21/22 03/06/24 History Omeprazole [PriLOSEC] 20 mg PO Q48H 08/21/22 03/11/24 History Pravastatin Sodium [Pravachol] 80 mg PO DAILY 03/06/24 03/06/24 History Allergies Allergy/AdvReac Type Severity Reaction Status Date / Time codeine Allergy Swelling Verified 03/11/24 10:29 Penicillins Allergy Swelling Verified 03/11/24 10:29 sulfamethoxazole Allergy Swelling Verified 03/11/24 10:29 [From Bactrim] trimethoprim [From Bactrim] Allergy Swelling Verified 03/11/24 10:29 Physical Exam Vitals: Vital Signs Temp Pulse Resp BP Pulse Ox 03/12/24 00:54 97.9 F 98 15 113/71 92 L 03/11/24 21:03 93 106/68 96 03/11/24 20:48 92 103/68 96 03/11/24 20:34 101 H 107/72 96 03/11/24 20:18 103 H 102/70 96 03/11/24 20:03 97.5 F L 100 126/73 96 03/11/24 19:15 103 H 16 112/70 94 L 03/11/24 18:45 103 H 16 113/75 95 03/11/24 18:30 100 16 110/68 94 L 03/11/24 18:15 98 16 109/75 92 L 03/11/24 18:00 88 16 120/76 96 03/11/24 17:43 89 16 121/67 95 03/11/24 17:28 99 16 126/80 95 03/11/24 17:13 95 16 136/84 94 L 03/11/24 16:58 97.2 F L 105 H 21 112/75 95 03/11/24 10:20 97.0 F L 58 L 16 134/65 98 Intake and Output 03/11/24 03/11/24 03/12/24 14:59 22:59 06:59 Intake Total 2852 400 Output Total 1050 100 Balance 2852 -650 -100 Intake: IV 2852 400 Output: Drainage 100 100 Back 100 100 Urine 250 Estimated Blood Loss 700 Other: Voiding Method Indwelling Catheter Weight 107 kg Thrombosis Risk Factor Assmnt - Choose All That Apply Any of the Below Risk Factors Present?: Yes Each Factor Represents 1 point: Obesity (BMI >25) Other Risk Factors: Yes Each Risk Factor Represents 2 Points: Age 61-74 years Other congenital or acquired thrombophilia - If yes, enter type in comment: Yes Each Risk Factor Represents 5 Points: Major surgery lasting over 3 hours Thrombosis Risk Factor Assessment Total Risk Factor Score: 8 Thrombosis Risk Factor Assessment Level: High Risk
[2024-03-12] MEDS: LEVOTHYROXINE 100 MCG TAB PO SCH (05:38)
[2024-03-12] MEDS: PANTOPRAZOLE 40 MG TABLET PO SCH (05:39)
[2024-03-12] MEDS: METOPROLOL TARTRATE 25 MG TAB PO SCH (07:53)
[2024-03-12] MEDS: PRAVASTATIN SODIUM 80 MG TAB PO SCH (07:53)
--- NOTE | 2024-03-12 07:53 | CT ---
EXAMINATION TYPE: CT lumbar spine wo con DATE OF EXAM: 03/11/2024 10:54 PM COMPARISON: 03/11/2024 CLINICAL INDICATION: Male, 73 years old with history of s/p L3-pelvis decompr fusion, s/p L2-L3 Later al fusion, TECHNIQUE: Contiguous axial scanning of the lumbar spine without IV contrast. Coronal and sagittal re constructions performed. CT DLP: 1513.3 mGycm, Automated exposure control for dose reduction was used. FINDINGS: * Small to moderate size hiatal hernia partially visualized. * Strandy atelectasis at the lung bases. * 8 mm nonobstructive right renal stone. * 2.6 cm cyst left kidney. * Ectatic bilateral common iliac arteries measuring up to 1.7 cm on either side. * Mid sigmoid diverticulosis. Postsurgical changes of L3-S1 posterior and interbody lumbar fusion with corresponding laminectomies. Extension of fusion into the pelvis on both sides. Posterior midline skin kailey with underlying so ft tissue swelling and foci of air relating to recent operation. No fixed grade 1 anterolisthesis L5-S1. Orthopedic hardware appears satisfactory positioning. Vertebr al body heights are preserved. Surgical drain in place. IMPRESSION: 1. STATUS POST L3-S1 POSTERIOR AND INTERBODY LUMBAR FUSION WITH CORRESPONDING LAMINECTOMIES. POSTERIO R FUSION EXTENDS DOWN INTO THE PELVIS ON BOTH SIDES. 2. RECENT POSTOPERATIVE CHANGES. NO EVIDENCE OF HARDWARE COMPLICATION. 3. FIXED GRADE 1 ANTEROLISTHESIS L5-S1. 4. INCIDENTAL: SMALL TO MODERATE SIZED HIATAL HERNIA, 8 MM NONOBSTRUCTIVE RIGHT RENAL STONE, AND MID SIGMOID DIVERTICULOSIS. [facility], , 03/12/2024 7:51 AM
[2024-03-12 08:37] LABS: BUN/Creat Ratio 12.67 Ratio (12.00-20.00); Blood Urea Nitrogen 11.4 mg/dL (9.0-27.0); Calcium 8.2 mg/dL (8.7-10.3); Carbon Dioxide 23.7 mmol/L (21.6-31.8); Chloride 105 mmol/L (96-109); Glucose 176 mg/dL (70-110); Potassium 4.8 mmol/L (3.5-5.5); Sodium 139 mmol/L (135-145)
[2024-03-12 08:41] LABS: Basophils # (A) 0.03 X 10*3/uL (0.00-0.10); Basophils % (A) 0.2 %; Eosinophils # (A) 0 X 10*3/uL (0.04-0.35); Eosinophils % (A) 0 %; HCT 34.6 % (39.6-50.0); HGB 11.4 g/dL (13.0-17.0); Lymphocytes # (A) 1.09 X 10*3/uL (0.90-5.00); MCH 30.4 pg (27.0-32.0); MCHC 32.9 g/dL (32.0-37.0); MCV 92.3 FL (80.0-97.0); Mean Platelet Volume 9.4 FL (9.5-12.2); Monocytes # (A) 1.16 X 10*3/uL (0.20-1.00); Monocytes % (A) 6.4 %; NRBC Per 100 WBC 0 X 10*3/uL (0.00-0.01); Neutrophils # (A) 15.67 X 10*3/uL (1.80-7.70); Neutrophils % (A) 86.7 %; Platelet Count 261 X 10*3/uL (140-440); RBC 3.75 X 10*6/uL (4.40-5.60); RDW 12.3 % (11.5-14.5); WBC 18.08 X 10*3/uL (4.50-10.00)
[2024-03-12] MEDS ORDERED: KETOROLAC 15 MG/ML 1 ML VIAL IVP PRN (10:16)
--- NOTE | 2024-03-12 12:28 | P.PN ---
Subjective Progress Note Date: 03/12/24 Principal diagnosis: Status post [id number] posterior lateral instrumentation, L3-S1 decompression, posterior lateral interbody fusion Patient was examined today at bedside, he was up resting in his hospital chair. Patient's urinary catheter was removed earlier today, they are monitoring urinary output at this time. He has been up and ambulating a little bit with the walker. Patient denies headaches, headedness, chest pain or shortness of breath at this time. Patient is having some pain but seems to be controlled with current medications Objective - Vital Signs Vital signs: Vital Signs Temp 97.8 F 03/12/24 07:00 Pulse 91 03/12/24 07:00 Resp 17 03/12/24 07:00 BP 99/65 03/12/24 07:00 Pulse Ox 95 03/12/24 07:00 FiO2 Intake & Output 03/11/24 03/12/24 03/12/24 18:59 06:59 18:59 Intake Total 3252 120 Output Total 950 980 250 Balance 2302 -980 -130 Weight 107 kg Intake: IV 3252 Oral 120 Output: Drainage 380 Back 380 Urine 250 600 250 Estimated Blood Loss 700 Other: Voiding Method Indwelling Catheter Indwelling Catheter - Exam Gen: AOx3, NAD VSS stable at this time Integument: Postop dressing is in good position condition, the drain is in good position and condition Palpation: Pain throughout the lower lumbar spine with palpation mainly on the paraspinal region ROM: Full range of motion in all major muscle groups of the bilateral upper and lower extremities, no focal deficits appreciated Sensory Exam: Senory exam to light touch is intact C5-T1 Senosry exam to light touch is intact L2-S1 Motor: 5/5 strength appreciated the bilateral upper extremities with shoulder elevation, shoulder abduction, elbow extension, elbow flexion, wrist extension, wrist flexion, power washer 4/5 strength appreciated bilateral lower extremities with hip flexion, knee ext ension, knee flexion, plantarflexion, dorsiflexion, EHL, FHL Reflexes: 2/4 in all UE and LE Negative Tino's bilaterally Babinski bilaterally Negative clonus bilaterally - Labs CBC & Chem 7: 03/12/24 03:15 03/12/24 03:15 Labs: Abnormal Lab Results - Last 24 Hours (Table) 03/12/24 03/12/24 Range/Units 03:15 03:15 WBC 18.08 H (4.50-10.00) X 10*3/uL RBC 3.75 L (4.40-5.60) X 10*6/uL Hgb 11.4 L (13.0-17.0) g/dL Hct 34.6 L (39.6-50.0) % MPV 9.4 L (9.5-12.2) FL Immature Gran # 0.13 H (0.00-0.04) X 10*3/uL Neutrophils # 15.67 H (1.80-7.70) X 10*3/uL Monocytes # 1.16 H (0.20-1.00) X 10*3/uL Eosinophils # 0 L (0.04-0.35) X 10*3/uL Glucose 176 H (70-110) mg/dL Calcium 8.2 L (8.7-10.3) mg/dL Assessment and Plan Assessment: Postoperative day #1 status post [id number] posterior lateral instrumentation, L3-S1 decompression and posterior lateral and interbody fusion Plan: Pain control, continue with current medications. Continue scheduled stool softeners Monitor drain output and surgical dressing, plan for dressing change on 03/13/2024 DVT prophylaxis, continue TAZ hose and compression stockings, aspirin 81 mg daily Encourage incentive spirometer Discussing with office staff LSO brace status, okay to walk shorter distances with walker without brace at this time PT/OT appreciated Medical recommendations appreciated Will continue to follow during hospital stay Time with Patient: Less than 30
[2024-03-12] MEDS: ASPIRIN 81 MG PO SCH (12:46)
[2024-03-12] MEDS: SENNOSIDES-DOCUSATE SODIUM 1 EACH TAB PO SCH (12:46)
[2024-03-13] MEDS: polyethylene glycoL 3350 17 GM POWD.PACK PO SCH (08:20)
[2024-03-13 09:12] LABS: Basophils # (A) 0.08 X 10*3/uL (0.00-0.10); Basophils % (A) 0.5 %; Eosinophils # (A) 0.15 X 10*3/uL (0.04-0.35); HGB 10.5 g/dL (13.0-17.0); Lymphocytes # (A) 2.97 X 10*3/uL (0.90-5.00); Lymphocytes % (A) 19.7 %; MCH 30.2 pg (27.0-32.0); MCHC 32.8 g/dL (32.0-37.0); Mean Platelet Volume 9.3 FL (9.5-12.2); Monocytes # (A) 1.48 X 10*3/uL (0.20-1.00); Monocytes % (A) 9.8 %; NRBC Per 100 WBC 0 X 10*3/uL (0.00-0.01); Neutrophils # (A) 10.28 X 10*3/uL (1.80-7.70); Neutrophils % (A) 68.4 %; Platelet Count 238 X 10*3/uL (140-440); RBC 3.48 X 10*6/uL (4.40-5.60); RDW 12.6 % (11.5-14.5); WBC 15.05 X 10*3/uL (4.50-10.00)
--- NOTE | 2024-03-13 10:06 | P.PN ---
Subjective Progress Note Date: 03/13/24 Principal diagnosis: Status post [id number] posterior lateral instrumentation, L3-S1 decompression, posterior lateral interbody fusion Patient was examined today at bedside, he was up resting in his hospital chair. Still awaiting delivery for his LSO brace. He is urinating with no issues. He has not had a bowel movement at this time. His pain is well-controlled. Patient denies headaches, headedness, chest pain or shortness of breath at this time. Objective - Vital Signs Vital signs: Vital Signs Temp 98.4 F 03/13/24 07:02 Pulse 94 03/13/24 07:02 Resp 18 03/13/24 07:02 BP 112/76 03/13/24 07:02 Pulse Ox 95 03/13/24 07:02 FiO2 Intake & Output 03/12/24 03/13/24 03/13/24 18:59 06:59 18:59 Intake Total 320 Output Total 520 160 100 Balance -200 -160 -100 Intake: Oral 320 Output: Drainage 170 160 100 Back 170 160 100 Urine 350 Other: Voiding Method Indwelling Catheter Toilet Urinal # Voids 2 1 - Exam Gen: AOx3, NAD VSS stable at this time Integument: Postop dressing removed today, drain is in good position, kailey are in good position. Palpation: Pain throughout the lower lumbar spine with palpation mainly on the paraspinal region ROM: Full range of motion in all major muscle groups of the bilateral upper and lower extremities, no focal deficits appreciated Sensory Exam: Senory exam to light touch is intact C5-T1 Senosry exam to light touch is intact L2-S1 Motor: 5/5 strength appreciated the bilateral upper extremities with shoulder elevation, shoulder abduction, elbow extension, elbow flexion, wrist extension, wrist flexion, inspector hairspring 4/5 strength appreciated bilateral lower extremities with hip flexion, knee extension, knee flexion, plantarflexion, dorsiflexion, EHL, FHL Reflexes: 2/4 in all UE and LE Negative Tino's bilaterally Babinski bilaterally Negative clonus bilaterally - Labs CBC & Chem 7: 03/13/24 05:02 03/12/24 03:15 Labs: Abnormal Lab Results - Last 24 Hours (Table) 03/13/24 Range/Units 05:02 WBC 15.05 H (4.50-10.00) X 10*3/uL RBC 3.48 L (4.40-5.60) X 10*6/uL Hgb 10.5 L (13.0-17.0) g/dL Hct 32.0 L (39.6-50.0) % MPV 9.3 L (9.5-12.2) FL Immature Gran # 0.09 H (0.00-0.04) X 10*3/uL Neutrophils # 10.28 H (1.80-7.70) X 10*3/uL Monocytes # 1.48 H (0.20-1.00) X 10*3/uL Assessment and Plan Assessment: Postoperative day #2 status post [id number] posterior lateral instrumentation, L3-S1 decompression and posterior lateral and interbody fusion Plan: Pain control, continue with current medications. Continue scheduled stool softeners New dressing applied, will leave drain in at this time and continue to monitor DVT prophylaxis, continue TAZ hose and compression stockings, aspirin 81 mg daily Encourage incentive spirometer Discussing with office staff LSO brace status, okay to walk shorter distances with walker without brace at this time PT/OT appreciated Medical recommendations appreciated Will continue to follow during hospital stay Time with Patient: Less than 30
--- NOTE | 2024-03-13 11:19 | P.PN ---
Subjective Progress Note Date: 03/13/24 Subjective: Patient seen and examined at bedside. No acute events overnight. Pertinent positives and negatives as discussed above, a complete review of systems was performed and all other systems are negative. Vitals Signs Reviewed. General: Nontoxic, no distress, appears at stated age Derm: Warm, dry, back dressing clean, dry, intact, drain in place Head: Atraumatic, normocephalic, symmetric Eyes: EOMI, no lid lag, anicteric sclera Mouth: No lip lesion, mucus membranes moist Cardiovascular: S1S2 reg, no murmur Lungs: CTA bilateral, no rhonchi, no rales, no accessory muscle use Abdominal: Soft, nontender to palpation, no guarding, no appreciable organomegaly Ext: No gross muscle atrophy, no edema, no contractures Neuro: CN II-XI grossly intact, no focal neuro deficits Psych: Alert, oriented, appropriate affect Data Reviewed Today: Pertinent Labs: WBC 15.05, hemoglobin 10.5 Imaging: No new imaging Assessment and Plan: Status post L3-S1 decompression and fusion Leukocytosis, anticipated outcome of surgery Mild acute blood loss anemia, anticipated outcome of surgery -Pain control with oral Tylenol scheduled 650 every 6 hours, Flexeril as needed, gabapentin 400 mg twice daily, IV Toradol as needed oral Armbrust as needed, IV Dilaudid as needed, monitor for sedation -Bowel regimen per orthospine surgery -SCDs for DVT prophylaxis, also on aspirin 81 mg daily Hypertension -Continue metoprolol 25 twice daily Dyslipidemia -Continue pravastatin 80 mg daily Hypothyroidism -Continue levothyroxine 100 mcg daily GERD -Continue pantoprazole 40 every other day. Patient is medically optimized for discharge Thank you for allowing us to participate in the care of this pleasant patient. Do not hesitate to contact us with questions. Someone can be reached from the [facility] [place] hospitalist group all hours of the day at [phone] or via [employer]. Objective - Vital Signs Vital signs: Vital Signs Temp 98.4 F 03/13/24 07:02 Pulse 94 03/13/24 07:02 Resp 18 03/13/24 07:02 BP 112/76 03/13/24 07:02 Pulse Ox 95 03/13/24 07:02 FiO2 Intake & Output 03/12/24 03/13/24 03/13/24 18:59 06:59 18:59 Intake Total 320 Output Total 520 160 100 Balance -200 -160 -100 Intake: Oral 320 Output: Drainage 170 160 100 Back 170 160 100 Urine 350 Other: Voiding Method Indwelling Catheter Toilet Urinal # Voids 2 1 - Labs CBC & Chem 7: 03/13/24 05:02 03/12/24 03:15 Labs: Abnormal Lab Results - Last 24 Hours (Table) 03/13/24 Range/Units 05:02 WBC 15.05 H (4.50-10.00) X 10*3/uL RBC 3.48 L (4.40-5.60) X 10*6/uL Hgb 10.5 L (13.0-17.0) g/dL Hct 32.0 L (39.6-50.0) % MPV 9.3 L (9.5-12.2) FL Immature Gran # 0.09 H (0.00-0.04) X 10*3/uL Neutrophils # 10.28 H (1.80-7.70) X 10*3/uL Monocytes # 1.48 H (0.20-1.00) X 10*3/uL
[2024-03-14] MEDS: ONDANSETRON 4 MG/2 ML VIAL IVP PRN (06:20)
[2024-03-14 07:41] VITALS: BP 115/77; PULSE 109; RESP 18; TEMP 98
[2024-03-14 09:38] LABS: Basophils # (A) 0.07 X 10*3/uL (0.00-0.10); Basophils % (A) 0.6 %; Eosinophils # (A) 0.19 X 10*3/uL (0.04-0.35); Eosinophils % (A) 1.7 %; HCT 32.9 % (39.6-50.0); HGB 10.5 g/dL (13.0-17.0); Lymphocytes # (A) 2.56 X 10*3/uL (0.90-5.00); Lymphocytes % (A) 23.3 %; MCH 30.1 pg (27.0-32.0); MCHC 31.9 g/dL (32.0-37.0); MCV 94.3 FL (80.0-97.0); Mean Platelet Volume 9.5 FL (9.5-12.2); Monocytes # (A) 1.11 X 10*3/uL (0.20-1.00); Monocytes % (A) 10.1 %; NRBC Per 100 WBC 0 X 10*3/uL (0.00-0.01); Neutrophils # (A) 7.02 X 10*3/uL (1.80-7.70); Neutrophils % (A) 63.8 %; Platelet Count 249 X 10*3/uL (140-440); RBC 3.49 X 10*6/uL (4.40-5.60); RDW 12.3 % (11.5-14.5); WBC 11.01 X 10*3/uL (4.50-10.00)
--- NOTE | 2024-03-14 11:31 | P.DS ---
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 Lower extremity weakness 5. Neurogenic claudication Discharge diagnosis: Same Attending physician: Dr. Womack Surgical procedures: [id number] posterior lateral instrumentation, L3-S1 decompression, posterior lateral interbody fusion Brief history: Patient is a 73-year-old male with a history of L5-S1 spondyl olisthesis and spondylosis; L3-S1 spondylosis with stenosis; lower extremity radiculopathy and weakness. At this point patient has failed conservative treatment measures and has opted to proceed with a elective L3 to pelvis decompression posterior lateral interbody fusion. Hospital course: Details of patient's surgery can be found in operative report. Patient tolerated the procedure well and was subsequently transported to orthopedic floor. Patient's orthopeidc and medical care was provided daily. Patient had daily laboratory tests performed for evaluation of overall blood counts. Patient had daily physical therapy to include strengthening range of motion as well as education with walker ambulation. Patient was treated with aspirin for their postoperative DVT prophylaxis during their inpatient stay. Patient was noted to have a relatively uneventful postoperative course. Patient reported satisfactory pain control with oral pain medications by postoperative day 3. Patient showed satisfactory progress with physical therapy. Patient moved steadily through the program and had no difficulty meeting the goals by postoperative day 3. Given patient's otherwise satisfactory course and having met physical therapy goals, plan is to discharge patient home on postoperative day 3. Discharge condition/disposition: Patient will be discharged home in stable condition. Discharge medications: Instructions are given on resumption of patient's normal daily medications per primary care recommendation, in addition patient will be prescribed Coolidge; Flexeril; senna; Duricef. 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 Lower extremity weakness 5. Neurogenic claudication Procedure: [id number] posterior lateral instrumentation, L3-S1 decompression, posterior lateral interbody fusion Medications: See medication list All medication refills should be obtained through your primary care doctor or your clinic spine surgeon. Please discuss prescription refills at your follow up appointment. Do not call the hospital for medication refills. Dressing: Leave your dressing in place for a total of 5 days post operatively. Then you may remove your dressing and leave open to air. Keep the area clean and if not able to keep area clean, then cover with sterile gauze and tape. Showering: You may shower 3 days after your procedure allowing soap and water to run over incision. Do not scrub. Do not soak. Blot dry. Follow up: Please confirm a follow up appointment with your surgeon 3 weeks post operatively. Please make an appointment to follow up with your PCP in 1-2 weeks after surgery for evaluation '3 phase, 3-week plan' POST OP WEEKS 1-3 1. Lifting/carrying/pushing/pulling limited to less than 5 pounds. 2. Do not sit for longer than 15 minutes at one time. Get up and walk around. Prolonged sitting is NOT advised. If you lay down, see if you can tolerate laying down on you front (belly side) 3. Walk for periods of 15 minutes = 1 mile but no longer; do it multiple times times each day. 4. Ice your low back after activity. POST OP WEEKS 3-6 1. Lifting limited to less than 20 pounds. 2. Do not sit for longer than 30 minutes at a time. Frequently change positions. Use a sit-to stand workstation or take frequent breaks from sitting if you have returned to work. 3. Walk for 30 minutes each day. If possible, do these three or more times a day POST OP WEEKS 6+ At your 6-week appointment we will give you a physical therapy referral to focus on a core stabilization and strengthening program. You should also work on leg & buttock strengthening, hamstring & quadriceps stretching, and continue a low impact aerobic activity program such as swimming, walking, or riding a stationary bicycle. During the initial 6 weeks after your surgery, you are at the highest risk of re-injuring your spine. You should generally avoid BLT's (bending, lifting and twisting combination motions) and follow the above guidelines to reduce the chance of reinjury. You can anticipate post op appointments in our office at approximately 3 weeks and 6 weeks after your surgery. INCISION CARE: If your incision is not draining you do NOT need to cover it with a dressing. Keep your incision clean, dry and intact. In most cases, we apply skin glue, kailey or sutures to the incision at the time of surgery. This will be like a crust or have the appearance of a scab and will fall off in time on its own. The stitches or kailey need to be removed at 3 weeks post op appointment. You may begin to shower 3 days after surgery (this allows the glue to jett well). However, please avoid scrubbing the incision site or peeling off any of the skin glue. This will ensure optimal healing of your incision. Also, during this time avoid soaking the incision area in water - this includes swimming pools, hot tubs or baths. No ointments, lotions or oils on the incision until your surgeon allows. Leave kailey, sutures or glue in place. Neurological dysfunction that comes on suddenly can also be a sign of a stroke. Below some common symptoms of a stroke are listed: B - balance difficulty such as sudden onset walking or leaning to one side - NEW E - eye problem such as sudden double vision or trouble seeing on one side - NEW F - Facial weakness or numbness on one side - NEW A - Arm or leg weakness or numbness on one side - NEW S - Slurred speech or difficulty with word finding - NEW T - Time is BRAIN! Call 911 as soon as you recognize these symptoms Diet: Consume a regular diet rich in vegetables and lean protein such as chicken or fish. You should consume in a ratio of approximately 20% fats|40% carbohydrates|40%protein. Vegetables, sweet potatoes, brown rice or quinoa are examples of good carbohydrates. Chips, white bread, cookies and sweets/sugar are examples of bad carbohydrates. Limit your bad carbs, go wild with good carbs. "Life's Simple 7" Guidelines as per [place] [employer] These will help you reclaim your life after surgery and machine helper in your recovery, keeping in mind your restrictions. (1) Get Active. Physical activity can help people lose weight, control high blood pressure and cholesterol, feel emotionally better, and sleep better. (2) Control Cholesterol. Avoid a diet high in saturated fat, trans fat, & cholesterol. Limit whole milk & cream, ice cream, butter, egg yolks, processed meats (like sausage and hot dogs), and fatty meats. Choose healthy foods that are low in saturated fat, trans fat and cholesterol which include: Fruits and vegetables, fiber rich grain products (like whole gr ain pasta and brown rice), lean meat such as chicken, fish, nuts, seeds, and legumes. (3) Eat Better. Eat small portions. Shop at the grocery with a list and do not stray from it. Tips for a healthy diet include: Limit sodium intake to less than 1500mg daily, avoid prepackaged, processed, and fast foods, choose a diet rich in fruits, vegetables, and whole grain, high fiber foods, and limit saturated & cholesterol in your diet. (4) Manage Blood Pressure. If you have high blood pressure, you should have a cuff at home so that you can check your blood pressure regularly. Be sure you have a good cuff. An arm one is generally better than a wrist one. Bring the cuff to a doctor's appointment to validate that the measurements that your cuff are taking are accurate. Take your blood pressure twice daily when you are sitting down and relaxing. Record the numbers in a log and bring this log with you to your doctors' appointments. (5) Lose Weight if your BMI is above 25. A healthy BMI is between 19-25. To calculate Your BMI, you may use a Standard BMI Calculator on the NIH BMI website: <www.nhlbi.nih.gov/guidelines/obesity/BMI/bmicalc.htm>. Weigh oneself daily. If you are overweight, set a goal to lose weight. A pound a week loss if needed is a good target. (6) Reduce Blood Sugar. Limit foods and liquids with "added sugars." (Added sugars include sucrose, fructose, glucose, maltose, dextrose, high fructose corn syrup, corn syrup, concentrated fruit juice and honey). (7) Stop Smoking. If you smoke, quitting smoking is one of the best things that you can do for your health. Smoking increases your risk of heart attack, stroke, and peripheral vascular disease, which is a build-up of plaque in your arteries. Please discard all the cigarettes and lighters in your house. Have a plan for what you will do when you have the urge to smoke. Direct and second- hand smoke shortens your life as well as the lives of your family, friends and others around you. For your health and the health of those around you, please consider quitting! Proper Bending Body Mechanics: Maintain a wide stance with one foot slightly in front of the other. Keep your back straight. Bend utilizing the strength in your hips and knees. Do not bend at the waist. Maintain the lifted object at your waist-level close to your body. Avoid lifting weight that causes immediately pain or pain anywhere in the body afterwards. Smoking/Nicotine If there was ever one thing that you could do to increase your overall health, decrease your risk of cardiovascular problems by about 39% the second you make the choice, it is to STOP SMOKING. Your body's most instant gratification is the second you stop smoking. We have all heard the studies, read the articles but it is true, smoking is extremely bad for your overall health, and moreover it is detrimental to your bone health. Nicotine, IN ANY FORM, kills bone cells, prevents your body from healing fractures, and significantly prolongs healing after surgery. In spine surgery specifically, it increases your risk of not healing your bones to create a fusion and increases your risk of having a revision surgery due to this up to 60%. I know it is hard. I know it feels impossible. But there are ways. Take control of your life. We are here to help you through it. And when you are ready, ask us and we can direct you to help if you desire. Use the START Plan to Quit Smoking (please visit the Helpguide.org website listed below for more information): S = Set a quit date. Choose a date within the next 2 weeks, so you have enough time to prepare without losing your motivation to quit. If you mainly smoke at work, quit on the weekend, so you have a few days to adjust to the change. T = Tell family, friends, and co-workers that you plan to quit. Let your friends and family in on your plan to quit smoking and tell them you need their support and encouragement to stop. Look for a quit ashley who wants to stop smoking as well. You can help each other get through the rough times. A = Anticipate and plan for the challenges you'll face while quitting. Most people who begin smoking again do so within the first 3 months. You can help yourself make it through by preparing ahead for common challenges, such as nicotine withdrawal and cigarette cravings. R = Remove cigarettes and other tobacco products from your home, car, and work. Throw away all your cigarettes (no emergency pack!), lighters, ashtrays, and matches. Wash your clothes and freshen up anything that smells like smoke. Shampoo your car, clean your drapes and carpet, and steam your furniture. T = Talk to your doctor about getting help to quit. Your doctor can prescribe medication to help with withdrawal and suggest other alternatives. If you can't see a doctor, you can get many products over the counter at your local pharmacy or grocery store, including the nicotine patch, nicotine lozenges, and nicotine gum. Resources for Quitting Smoking: <https://www.[place].gov/documents/[facility]/Quit_Tobacco_Resources_for_patients_313 480_7.pdf> Supplementation: Take recommended dosages of Vitamin D and Calcium to help fortify your bones and help them to heal. See your health maintenance packet for dosages and recommended levels. DVT/VTE prophylaxis: You will be given compression stockings from the hospital. Wear these daily for the first two weeks after surgery. You may take them off at night. You may be prescribed a medication to help thin your blood. Take this as directed. If you are not prescribed this medication, early and frequent ambulation has been shown to be the best prophylaxis to deep vein thrombosis and sequelae related to this event. 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 Lower extremity weakness 5. Neurogenic claudication Procedures: [id number] posterior lateral instrumentation, L3-S1 decompression, posterior lateral interbody fusion Patient Condition at Discharge: Good Plan - Discharge Summary Discharge Rx Participant: Yes New Discharge Prescriptions: New cefaDROXiL [Duricef] 500 mg PO Q12HR 5 Days #10 cap Cyclobenzaprine [Flexeril] 5 mg PO TID #21 tablet HYDROcodone/APAP 10-325MG [Coolidge 10-325] 1 tab PO Q6HR PRN #28 tab PRN Reason: Pain Sennosides/Docusate Sodium [Senna Plus 8.6-50 mg Softgel] 1 each PO DAILY #20 capsule Continue Gabapentin [Neurontin] 400 mg PO BID Levothyroxine Sodium [Synthroid] 100 mcg PO DAILY Pravastatin Sodium [Pravachol] 80 mg PO DAILY Omeprazole [PriLOSEC] 20 mg PO Q48H Metoprolol Tartrate 25 mg PO BID Discharge Medication List Gabapentin [Neurontin] 400 mg PO BID 04/17/18 [History] Levothyroxine Sodium [Synthroid] 100 mcg PO DAILY 02/06/19 [History] Metoprolol Tartrate 25 mg PO BID 08/21/22 [History] Omeprazole [PriLOSEC] 20 mg PO Q48H 08/21/22 [History] Pravastatin Sodium [Pravachol] 80 mg PO DAILY 03/06/24 [History] Cyclobenzaprine [Flexeril] 5 mg PO TID #21 tablet 03/14/24 [Rx] HYDROcodone/APAP 10-325MG [Coolidge 10-325] 1 tab PO Q6HR PRN #28 tab 03/14/24 [Rx] Sennosides/Docusate Sodium [Senna Plus 8.6-50 mg Softgel] 1 each PO DAILY #20 capsule 03/14/24 [Rx] cefaDROXiL [Duricef] 500 mg PO Q12HR 5 Days #10 cap 03/14/24 [Rx] Follow up Appointment(s)/Referral(s): [facility] - 1-2 Days ([facility] will call you to schedule your in home physical therapy and nursing visits. 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 Lower extremity weakness 5. Neurogenic claudication Procedure: [id number] posterior lateral instrumentation, L3-S1 decompression, posterior lateral interbody fusion Medications: See medication list All medication refills should be obtained through your primary care doctor or your clinic spine surgeon. Please discuss prescription refills at your follow up appointment. Do not call the hospital for medication refills. Dressing: Leave your dressing in place for a total of 5 days post operatively. Then you may remove your dressing and leave open to air. Keep the area clean and if not able to keep area clean, then cover with sterile gauze and tape. Showering: You may shower 3 days after your procedure allowing soap and water to run over incision. Do not scrub. Do not soak. Blot dry. Follow up: Please confirm a follow up appointment with your surgeon 3 weeks post operatively. Please make an appointment to follow up with your PCP in 1-2 weeks after surgery for evaluation '3 phase, 3-week plan' POST OP WEEKS 1-3 1. Lifting/carrying/pushing/pulling limited to less than 5 pounds. 2. Do not sit for longer than 15 minutes at one time. Get up and walk around. Prolonged sitting is NOT advised. If you lay down, see if you can tolerate laying down on you front (belly side) 3. Walk for periods of 15 minutes = 1 mile but no longer; do it multiple times times each day. 4. Ice your low back after activity. POST OP WEEKS 3-6 1. Lifting limited to less than 20 pounds. 2. Do not sit for longer than 30 minutes at a time. Frequently change positions. Use a sit-to stand workstation or take frequent breaks from sitting if you have returned to work. 3. Walk for 30 minutes each day. If possible, do these three or more times a day POST OP WEEKS 6+ At your 6-week appointment we will give you a physical therapy referral to focus on a core stabilization and strengthening program. You should also work on leg & buttock strengthening, hamstring & quadriceps stretching, and continue a low impact aerobic activity program such as swimming, walking, or riding a stationary bicycle. During the initial 6 weeks after your surgery, you are at the highest risk of re-injuring your spine. You should generally avoid BLT's (bending, lifting and twisting combination motions) and follow the above guidelines to reduce the chance of reinjury. You can anticipate post op appointments in our office at approximately 3 weeks and 6 weeks after your surgery. INCISION CARE: If your incision is not draining you do NOT need to cover it with a dressing. Keep your incision clean, dry and intact. In most cases, we apply skin glue, kailey or sutures to the incision at the time of surgery. This will be like a crust or have the appearance of a scab and will fall off in time on its own. The stitches or kailey need to be removed at 3 weeks post op appointment. You may begin to shower 3 days after surgery (this allows the glue to jett well). However, please avoid scrubbing the incision site or peeling off any of the skin glue. This will ensure optimal healing of your incision. Also, during this time avoid soaking the incision area in water - this includes swimming pools, hot tubs or baths. No ointments, lotions or oils on the incision until your surgeon allows. Leave kailey, sutures or glue in place. Neurological dysfunction that comes on suddenly can also be a sign of a stroke. Below some common symptoms of a stroke are listed: B - balance difficulty such as sudden onset walking or leaning to one side - NEW E - eye problem such as sudden double vision or trouble seeing on one side - NEW F - Facial weakness or numbness on one side - NEW A - Arm or leg weakness or numbness on one side - NEW S - Slurred speech or difficulty with word finding - NEW T - Time is BRAIN! Call 911 as soon as you recognize these symptoms Diet: Consume a regular diet rich in vegetables and lean protein such as chicken or fish. You should consume in a ratio of approximately 20% fats|40% carbohydrates|40%protein. Vegetables, sweet potatoes, brown rice or quinoa are examples of good carbohydrates. Chips, white bread, cookies and sweets/sugar are examples of bad carbohydrates. Limit your bad carbs, go wild with good carbs. "Life's Simple 7" Guidelines as per [place] [employer] These will help you reclaim your life after surgery and machine helper in your recovery, keeping in mind your restrictions. (1) Get Active. Physical activity can help people lose weight, control high blood pressure and cholesterol, feel emotionally better, and sleep better. (2) Control Cholesterol. Avoid a diet high in saturated fat, trans fat, & cholesterol. Limit whole milk & cream, ice cream, butter, egg yolks, processed meats (like sausage and hot dogs), and fatty meats. Choose healthy foods that are low in saturated fat, trans fat and cholesterol which include: Fruits and vegetables, fiber rich grain products (like whole grain pasta and brown rice), lean meat such as chicken, fish, nuts, seeds, and legumes. (3) Eat Better. Eat small portions. Shop at the grocery with a list and do not stray from it. Tips for a healthy diet include: Limit sodium intake to less than 1500mg daily, avoid prepackaged, processed, and fast foods, choose a diet rich in fruits, vegetables, and whole grain, high fiber foods, and limit saturated & cholesterol in your diet. (4) Manage Blood Pressure. If you have high blood pressure, you should have a cuff at home so that you can check your blood pressure regularly. Be sure you have a good cuff. An arm one is generally better than a wrist one. Bring the cuff to a doctor's appointment to validate that the measurements that your cuff are taking are accurate. Take your blood pressure twice daily when you are sitting down and relaxing. Record the numbers in a log and bring this log with you to your doctors' appointments. (5) Lose Weight if your BMI is above 25. A healthy BMI is between 19-25. To calculate Your BMI, you may use a Standard BMI Calculator on the NIH BMI website: <www.nhlbi.nih.gov/guidelines/obesity/BMI/bmicalc.htm>. Weigh oneself daily. If you are overweight, set a goal to lose weight. A pound a week loss if needed is a good target. (6) Reduce Blood Sugar. Limit foods and liquids with "added sugars." (Added sugars include sucrose, fructose, glucose, maltose, dextrose, high fructose corn syrup, corn syrup, concentrated fruit juice and honey). (7) Stop Smoking. If you smoke, quitting smoking is one of the best things that you can do for your health. Smoking increases your risk of heart attack, stroke, and peripheral vascular disease, which is a build-up of plaque in your arteries. Please discard all the cigarettes and lighters in your house. Have a plan for what you will do when you have the urge to smoke. Direct and second- hand smoke shortens your life as well as the lives of your family, friends and others around you. For your health and the health of those around you, please consider quitting! Proper Bending Body Mechanics: Maintain a wide stance with one foot slightly in front of the other. Keep your back straight. Bend utilizing the strength in your hips and knees. Do not bend at the waist. Maintain the lifted object at your waist-level close to your body. Avoid lifting weight that causes immediately pain or pain anywhere in the body afterwards. Smoking/Nicotine If there was ever one thing that you could do to increase your overall health, decrease your risk of cardiovascular problems by about 39% the second you make the choice, it is to STOP SMOKING. Your body's most instant gratification is the second you stop smoking. We have all heard the studies, read the articles but it is true, smoking is extremely bad for your overall health, and moreover it is detrimental to your bone health. Nicotine, IN ANY FORM, kills bone cells, prevents your body from healing fractures, and significantly prolongs healing after surgery. In spine surgery specifically, it increases your risk of not healing your bones to create a fusion and increases your risk of having a revision surgery due to this up to 60%. I know it is hard. I know it feels impossible. But there are ways. Take control of your life. We are here to help you through it. And when you are ready, ask us and we can direct you to help if you desire. Use the START Plan to Quit Smoking (please visit the Helpguide.org website lis kerry below for more information): S = Set a quit date. Choose a date within the next 2 weeks, so you have enough time to prepare without losing your motivation to quit. If you mainly smoke at work, quit on the weekend, so you have a few days to adjust to the change. T = Tell family, friends, and co-workers that you plan to quit. Let your friends and family in on your plan to quit smoking and tell them you need their support and encouragement to stop. Look for a quit ashley who wants to stop smoking as well. You can help each other get through the rough times. A = Anticipate and plan for the challenges you'll face while quitting. Most people who begin smoking again do so within the first 3 months. You can help yourself make it through by preparing ahead for common challenges, such as nicotine withdrawal and cigarette cravings. R = Remove cigarettes and other tobacco products from your home, car, and work. Throw away all your cigarettes (no emergency pack!), lighters, ashtrays, and matches. Wash your clothes and freshen up anything that smells like smoke. Shampoo your car, clean your drapes and carpet, and steam your furniture. T = Talk to your doctor about getting help to quit. Your doctor can prescribe medication to help with withdrawal and suggest other alternatives. If you can't see a doctor, you can get many products over the counter at your local pharmacy or grocery store, including the nicotine patch, nicotine lozenges, and nicotine gum. Resources for Quitting Smoking: <https://www.[place].gov/documents/[facility]/Quit_Tobacco_Resource s_for_patients_313480_7.pdf> Supplementation: Take recommended dosages of Vitamin D and Calcium to help fortify your bones and help them to heal. See your health maintenance packet for dosages and recommended levels. DVT/VTE prophylaxis: You will be given compression stockings from the hospital. Wear these daily for the first two weeks after surgery. You may take them off at night. You may be prescribed a medication to help thin your blood. Take this as directed. If you are not prescribed this medication, early and frequent ambulation has been shown to be the best prophylaxis to deep vein thrombosis and sequelae related to this event. Discharge Disposition: HOME SELF-CARE
--- NOTE | 2024-03-14 12:12 | P.PN ---
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 Lower extremity weakness 5. Neurogenic claudication Patient was seen at bedside this morning sitting up in chair with drain and dressing in place over lumbar spine. Patient says he is hoping to go home today. He says he does have walker for home. Patient says he is supposed be having a back brace arriving to his house. Patient says the pain is controlled with oral medication. Patient says he will have spouse be able to help him once he is home. Patient says he has been urinating since surgery without issue. Patient says he has not had abdominal yet however, he has been passing gas. Azam cartagena denies any other orthopedic complaints at this time. Objective - Vital Signs Vital signs: Vital Signs Temp 98 F 03/14/24 07:04 Pulse 109 H 03/14/24 07:04 Resp 18 03/14/24 07:04 BP 115/77 03/14/24 07:04 Pulse Ox 97 03/14/24 07:04 FiO2 Intake & Output 03/13/24 03/14/24 03/14/24 18:59 06:59 18:59 Output Total 100 120 360 Balance -100 -120 -360 Output: Drainage 100 120 360 Back 100 120 360 Other: Voiding Method Toilet Urinal # Voids 3 2 - Exam Main incision appears to be clean, dry contact. Negative for any active drainage. Gabby well and intact. 80 cc serosanguineous output in drain overnight. Drain was removed at bedside this morning. New dressing placed over drain incision. Sensation is equal, symmetric, by intact throughout the upper and lower extremities on exam. Patient does have full range of motion throughout bilateral upper extremities on exam. There is some limited range of motion in the bilateral hips in flexion extension secondary to referred stiffness and pain in the low back. 4/5 in all major motor groups in bilateral lower extremities on exam. 5/5 in all major motor groups in bilateral upper extremities. Some generalized tenderness to palpation over the incision on lumbar spine. Nontender on rest of exam. Radial pulse intact, 2+ bilaterally. Negative Homans bilaterally. Negative clonus bilaterally. Negative Tino bilaterally. - Labs CBC & Chem 7: 03/14/24 05:33 03/12/24 03:15 Labs: Abnormal Lab Results - Last 24 Hours (Table) 03/14/24 Range/Units 05:33 WBC 11.01 H (4.50-10.00) X 10*3/uL RBC 3.49 L (4.40-5.60) X 10*6/uL Hgb 10.5 L (13.0-17.0) g/dL Hct 32.9 L (39.6-50.0) % MCHC 31.9 L (32.0-37.0) g/dL Immature Gran # 0.06 H (0.00-0.04) X 10*3/uL Monocytes # 1.11 H (0.20-1.00) X 10*3/uL Assessment and Plan Assessment: 1.L5-S1 Grade 2 unstable spondylolisthesis and spondylolysis 2.L3-S1 spondylosis with stenosis, severe 3.Lower extremity radiculopathy 4. Lower extremity weakness 5. Neurogenic claudication Postop day 3 status post: U1grhtia posterior lateral instrumentation, L3-S1 decompression, posterior lateral interbody fusion Plan: 1.L5-S1 Grade 2 unstable spondylolisthesis and spondylolysis; L3-S1 spondylosis with stenosis, severe; Lower extremity radiculopathy; lower extremity weakness; neurogenic claudication -surgery form 03/11/2024L3 to pelvis posterior lateral instrumentation; L3-S1 decompression posterior lateral interbody fusion. Patient stable at bedside this morning sitting up in chair. 80 cc ser osanguineous drainage out overnight. Drain was removed at bedside this morning and dressing placed over drain incision. Mid incision dressing appears to be clean, dry, intact. Patient's pain is under well control. Patient does have back brace at home. Patient does have a walker for home. Discharge home today with home care 2. Appreciate medical management 3. Pain management -[place]; Flexeril; gabapentin 4. GI prophylaxis -senna 5. DVT prophylaxis -aspirin 6. PT/OT -weightbearing as tolerated with walker brace on as needed 7. Encourage incentive spirometer use 8. Discharge planning -home today Time with Patient: Less than 30
--- NOTE | 2024-03-14 14:34 | P.PN ---
Subjective Progress Note Date: 03/14/24 Subjective: Patient seen and examined at bedside. No acute events overnight. Pertinent positives and negatives as discussed above, a complete review of systems was performed and all other systems are negative. Vitals Signs Reviewed. General: Nontoxic, no distress, appears at stated age Derm: Warm, dry, back dressing clean, dry, intact, drain in place Head: Atraumatic, normocephalic, symmetric Eyes: EOMI, no lid lag, anicteric sclera Mouth: No lip lesion, mucus membranes moist Cardiovascular: S1S2 reg, no murmur Lungs: CTA bilateral, no rhonchi, no rales, no accessory muscle use Abdominal: Soft, nontender to palpation, no guarding, no appreciable organomegaly Ext: No gross muscle atrophy, no edema, no contractures Neuro: CN II-XI grossly intact, no focal neuro deficits Psych: Alert, oriented, appropriate affect Data Reviewed Today: Pertinent Labs: WBC 15.05, hemoglobin 10.5 Imaging: No new imaging Assessment and Plan: Status post L3-S1 decompression and fusion Leukocytosis, anticipated outcome of surgery Mild acute blood loss anemia, anticipated outcome of surgery -Pain control with oral Tylenol scheduled 650 every 6 hours, Flexeril as needed, gabapentin 400 mg twice daily, IV Toradol as needed oral [place] as needed, IV Dilaudid as needed, monitor for sedation -Bowel regimen per orthospine surgery -SCDs for DVT prophylaxis, also on aspirin 81 mg daily Hypertension -Continue metoprolol 25 twice daily Dyslipidemia -Continue pravastatin 80 mg daily Hypothyroidism -Continue levothyroxine 100 mcg daily GERD -Continue pantoprazole 40 every other day. Patient is medically optimized for discharge Thank you for allowing us to participate in the care of this pleasant patient. Do not hesitate to contact us with questions. Someone can be reached from the [facility] hospitalist group all hours of the day at [phone] or via [employer]. Objective - Vital Signs Vital signs: Vital Signs Temp 98 F 03/14/24 07:04 Pulse 109 H 03/14/24 07:04 Resp 18 03/14/24 07:04 BP 115/77 03/14/24 07:04 Pulse Ox 97 03/14/24 07:04 FiO2 Intake & Output 03/13/24 03/14/24 03/14/24 18:59 06:59 18:59 Output Total 100 120 360 Balance -100 -120 -360 Output: Drainage 100 120 360 Back 100 120 360 Other: Voiding Method Toilet Urinal # Voids 3 2 - Labs CBC & Chem 7: 03/14/24 05:33 03/12/24 03:15 Labs: Abnormal Lab Results - Last 24 Hours (Table) 03/14/24 Range/Units 05:33 WBC 11.01 H (4.50-10.00) X 10*3/uL RBC 3.49 L (4.40-5.60) X 10*6/uL Hgb 10.5 L (13.0-17.0) g/dL Hct 32.9 L (39.6-50.0) % MCHC 31.9 L (32.0-37.0) g/dL Immature Gran # 0.06 H (0.00-0.04) X 10*3/uL Monocytes # 1.11 H (0.20-1.00) X 10*3/uL
== END 2024-03-14 13:05 | disposition home or self-care (01) | DRG 427 ==
LOC: 2ORMAIN 10:01 → 4SSUR 19:44
PROVIDERS: ADMIT Orthopaedic Surgery; ATTEND Orthopaedic Surgery
PROC: 0SG1071 Fusion of 2 or more Lumbar Vertebral Joints with Autologous Tissue Substitute, Posterior Approach, Posterior Column, Open Approach (ICD-10-PCS; 2024-03-11)
PROC: 0SG30AJ Fusion of Lumbosacral Joint with Interbody Fusion Device, Posterior Approach, Anterior Column, Open Approach (ICD-10-PCS; 2024-03-11)
PROC: 0SG3071 Fusion of Lumbosacral Joint with Autologous Tissue Substitute, Posterior Approach, Posterior Column, Open Approach (ICD-10-PCS; 2024-03-11)
PROC: 0QS00ZZ Reposition Lumbar Vertebra, Open Approach (ICD-10-PCS; 2024-03-11)
PROC: 0QS10ZZ Reposition Sacrum, Open Approach (ICD-10-PCS; 2024-03-11)
PROC: 0QH304Z Insertion of Internal Fixation Device into Left Pelvic Bone, Open Approach (ICD-10-PCS; 2024-03-11)
PROC: 0QH204Z Insertion of Internal Fixation Device into Right Pelvic Bone, Open Approach (ICD-10-PCS; 2024-03-11)
PROC: 01NB0ZZ Release Lumbar Nerve, Open Approach (ICD-10-PCS; 2024-03-11)
PROC: 01NR0ZZ Release Sacral Nerve, Open Approach (ICD-10-PCS; 2024-03-11)
PROC: 0ST20ZZ Resection of Lumbar Vertebral Disc, Open Approach (ICD-10-PCS; 2024-03-11)
PROC: 0SG10AJ Fusion of 2 or more Lumbar Vertebral Joints with Interbody Fusion Device, Posterior Approach, Anterior Column, Open Approach (ICD-10-PCS; principal; 2024-03-11 12:00)
DX: M43.17 Spondylolisthesis, lumbosacral region (principal); D62 Acute posthemorrhagic anemia; E03.9 Hypothyroidism, unspecified; I10 Essential (primary) hypertension; M48.07 Spinal stenosis, lumbosacral region; M51.16 Intervertebral disc disorders with radiculopathy, lumbar region; M48.062 Spinal stenosis, lumbar region with neurogenic claudication; D72.828 Other elevated white blood cell count; K21.9 Gastro-esophageal reflux disease without esophagitis; E78.5 Hyperlipidemia, unspecified; H91.90 Unspecified hearing loss, unspecified ear; M62.562 Muscle wasting and atrophy, not elsewhere classified, left lower leg; M62.561 Muscle wasting and atrophy, not elsewhere classified, right lower leg; Z74.09 Other reduced mobility; Z79.890 Hormone replacement therapy; Z79.899 Other long term (current) drug therapy
CPT/HCPCS: 72100; 72131; 80048; 85025; 86891